=== PATIENT | female | born 1985 | race African-American/Black ===

== ENCOUNTER 2016-10-12 21:32 | Emergency (ER) | payer MEDICAID ==
[~2016-10-12] VITALS: Ht 170.2 cm; Wt 149.7 kg
[~2016-10-12 21:32] MED LIST: ALBUAER3 IN; CLOM50TA PO; METF-489 PO
[2016-10-13 01:02] VITALS: BP 146/90
[2016-10-13 01:10] LABS: Urine Bilirubin Negative (Negative); Urine Blood Negative /uL (Negative); Urine Color Yellow (Yellow); Urine Glucose Normal (Normal); Urine Ketone Negative (Negative); Urine Mucus FEW (None Seen); Urine RBC 4 /hpf (0 - 4); Urine Squamous Epithelial Cell FEW /hpf (<5); Urine Urobilinogen Normal (Negative); Urine pH 5.5 (5.0-8.0)
[2016-10-13 01:11] LABS: Urine Nitrite POSITIVE (Negative)
[2016-10-13] MEDS ORDERED: IBUPROFEN 600 MG TAB PO ONE (01:30)
[2016-10-13] MEDS ORDERED: LEVOFLOXACIN 250 MG TAB PO ONE (01:30)
== END 2016-10-13 02:11 | disposition home or self-care (01) ==
LOC: ER 21:32
DX: N39.0 Urinary tract infection, site not specified (principal); M79.1 Myalgia; J45.909 Unspecified asthma, uncomplicated; Z88.0 Allergy status to penicillin; E07.9 Disorder of thyroid, unspecified; Z88.1 Allergy status to other antibiotic agents; Z88.6 Allergy status to analgesic agent; Z88.8 Allergy status to other drugs, medicaments and biological substances; Z91.040 Latex allergy status
CPT/HCPCS: 81001; 81025

== ENCOUNTER 2018-05-26 01:23 | Emergency (ER) | payer MEDICAID ==
[~2018-05-26] VITALS: Ht 165.1 cm; Wt 117.9 kg
[2018-05-26 02:26] LABS: Basophils # (auto) 0.1 uL; Eosinophils # (auto) 0.2 uL; Eosinophils % (auto) 2.1 % (0.0-7.0); Hematocrit 37.7 % (36.0-46.0); Hemoglobin 12.5 g/dL (12.2-16.2); Lymphocytes # (auto) 3.4 uL; Lymphocytes % (auto) 40.4 % (10.0-50.0); Mean Corpuscular Hgb Conc. 33.2 g/dL (32.0-36.0); Mean Corpuscular Volume 87.3 fL (80.0-100.0); Monocytes # (auto) 0.4 uL; Monocytes % (auto) 4.6 % (0.0-12.0); Neutrophils # (auto) 4.3 uL; Neutrophils % (auto) 51.9 % (37.0-80.0); Nucleated Red Blood Cells % 0.2 %; Platelet Count (auto) 374 10^3/uL (140-450); Red Blood Cells 4.32 10^6/uL (4.0-5.20); Red Cell Distribution Width 13.9 % (11.8-14.3); White Blood Cell 8.3 10^3/uL (4.4-10.8)
[2018-05-26 02:42] LABS: Albumin 3.3 g/dL (3.4-5.0); BUN/Creatinine Ratio 20.6; Calcium 8.8 mg/dL (8.5-10.1); Potassium 3.8 mmol/L (3.5-5.1)
[2018-05-26 02:43] LABS: Bilirubin, Total 0.2 mg/dL (0.2-1.0)
[2018-05-26 04:45] LABS: Urine Bacteria FEW /hpf (None Seen); Urine Blood Negative /uL (Negative); Urine Mucus FEW (None Seen); Urine Specific Gravity 1.018 (1.001-1.035); Urine WBC 473 /hpf (0 - 5); Urine WBC Clumps PRESENT /hpf (None Seen)
[2018-05-26] MEDS ORDERED: LEVOFLOXACIN 750MG 150 ML IV ONE (05:30)
[2018-05-26 05:58] VITALS: BP 118/73
== END 2018-05-26 06:41 | disposition home or self-care (01) ==
LOC: ER 01:23
DX: N39.0 Urinary tract infection, site not specified (principal); J45.909 Unspecified asthma, uncomplicated; E07.9 Disorder of thyroid, unspecified; Z88.0 Allergy status to penicillin; Z88.1 Allergy status to other antibiotic agents; Z88.6 Allergy status to analgesic agent; Z91.040 Latex allergy status; Z90.49 Acquired absence of other specified parts of digestive tract
CPT/HCPCS: 36415; 74176; 80053; 81001; 85025; 96365; 99284; J1956

== ENCOUNTER 2018-07-04 11:21 | Emergency (ER) | payer MEDICAID ==
[~2018-07-04] VITALS: Ht 170.2 cm; Wt 120.2 kg
[2018-07-04 12:06] LABS: Basophils # (auto) 0.1 uL; Basophils % (auto) 0.7 % (0.0-2.0); Eosinophils # (auto) 0.1 uL; Eosinophils % (auto) 1.6 % (0.0-7.0); Hematocrit 39.3 % (36.0-46.0); Lymphocytes # (auto) 2.3 uL; Mean Corpuscular Hemoglobin 29.2 pg (28.0-32.0); Mean Corpuscular Volume 88.5 fL (80.0-100.0); Monocytes # (auto) 0.4 uL; Monocytes % (auto) 5.7 % (0.0-12.0); Neutrophils # (auto) 4.2 uL; Nucleated Red Blood Cells % 0.1 %; Platelet Count (auto) 357 10^3/uL (140-450); Red Blood Cells 4.44 10^6/uL (4.0-5.20); Red Cell Distribution Width 14.1 % (11.8-14.3); White Blood Cell 7.1 10^3/uL (4.4-10.8)
[2018-07-04 12:25] LABS: Albumin 3.3 g/dL (3.4-5.0); BUN/Creatinine Ratio 24.6; Calcium 8.4 mg/dL (8.5-10.1); Potassium 3.6 mmol/L (3.5-5.1)
[2018-07-04 12:29] LABS: Bilirubin, Total 0.3 mg/dL (0.2-1.0); Total Protein 7.9 g/dL (6.4-8.2)
[2018-07-04 14:26] VITALS: BP 130/84
== END 2018-07-04 14:58 | disposition home or self-care (01) ==
LOC: ER 11:21
DX: O34.11 Maternal care for benign tumor of corpus uteri, first trimester (principal); Z3A.01 Less than 8 weeks gestation of pregnancy
CPT/HCPCS: 36415; 76801; 76817; 80053; 81002; 84702; 85025

== ENCOUNTER 2019-08-07 01:49 | Emergency (ER) | payer MEDICAID ==
[~2019-08-07] VITALS: Ht 170.2 cm; Wt 115.7 kg
[2019-08-07 02:45] LABS: Basophils # (auto) 0.1 uL; Basophils % (auto) 0.9 % (0.0-2.0); Eosinophils # (auto) 0.2 uL; Eosinophils % (auto) 2.5 % (0.0-7.0); Hematocrit 41.2 % (36.0-46.0); Hemoglobin 13.5 g/dL (12.2-16.2); Lymphocytes # (auto) 3.8 uL; Lymphocytes % (auto) 41.2 % (10.0-50.0); Mean Corpuscular Hemoglobin 29.7 pg (28.0-32.0); Mean Corpuscular Hgb Conc. 32.7 g/dL (32.0-36.0); Mean Corpuscular Volume 90.6 fL (80.0-100.0); Monocytes # (auto) 0.4 uL; Monocytes % (auto) 4.4 % (0.0-12.0); Neutrophils # (auto) 4.7 uL; Nucleated Red Blood Cells % 0.1 %; Platelet Count (auto) 389 10^3/uL (140-450); Red Blood Cells 4.54 10^6/uL (4.0-5.20); Red Cell Distribution Width 13.7 % (11.8-14.3); White Blood Cell 9.1 10^3/uL (4.4-10.8)
[2019-08-07 03:03] LABS: Alanine Aminotransferase 13 U/L (13-56); Albumin 3.2 g/dL (3.4-5.0); Anion Gap 12 (5-15); Aspartate Aminotransferase 9 U/L (15-37); BUN/Creatinine Ratio 18.7; Blood Urea Nitrogen 14 mg/dL (7-18); Calcium 8.6 mg/dL (8.5-10.1); Carbon Dioxide 18 mmol/L (21-32); Chloride 108 mmol/L (98-107); GFR African American 112 mL/min; GFR Non-African American 93 mL/min; Glucose 93 mg/dL (74-106); Potassium 3.9 mmol/L (3.5-5.1); Sodium 138 mmol/L (136-145)
[2019-08-07 03:08] LABS: Alkaline Phosphatase 87 U/L (45-117); Bilirubin, Total 0.2 mg/dL (0.2-1.0); Total Protein 8.1 g/dL (6.4-8.2)
[2019-08-07] MEDS ORDERED: THIAMINE INJ 100 MG in SODIUM CHLORIDE 0.9% 1,000 ML IV ONE (05:30)
[2019-08-07] MEDS ORDERED: THIAMINE 100mg/ml INJ (200mg/2ml VIAL) ONE (05:52)
[2019-08-07] MEDS ORDERED: ONDANSETRON HCL 4 MG/2 ML VIAL IV ONE (06:45)
[2019-08-07] MEDS ORDERED: HYDROmorphone HCL 2 MG/ML VL IV ONE ×2 (06:45→09:30)
[2019-08-07 06:46] LABS: Urine Bacteria MOD /hpf (None Seen); Urine Blood Negative /uL (Negative); Urine Mucus FEW (None Seen); Urine Specific Gravity 1.015 (1.001-1.035); Urine WBC 55 /hpf (0 - 5)
[2019-08-07] MEDS ORDERED: cefTRIAXone 1GM/50ML D5W 50 ML IV ONE (07:45)
[2019-08-07 09:20] VITALS: BP 111/66
== END 2019-08-07 10:17 | disposition home or self-care (01) ==
LOC: ER 01:49
DX: N39.0 Urinary tract infection, site not specified (principal); N20.0 Calculus of kidney; Q05.9 Spina bifida, unspecified; N31.9 Neuromuscular dysfunction of bladder, unspecified; G82.20 Paraplegia, unspecified; E44.1 Mild protein-calorie malnutrition; J45.909 Unspecified asthma, uncomplicated; E11.9 Type 2 diabetes mellitus without complications; E07.9 Disorder of thyroid, unspecified; Z88.5 Allergy status to narcotic agent; Z91.040 Latex allergy status; Z88.0 Allergy status to penicillin; Z88.1 Allergy status to other antibiotic agents; Z88.8 Allergy status to other drugs, medicaments and biological substances
CPT/HCPCS: 36415; 80053; 81001; 83605; 84484; 85025; 87086; 87088; 87186; 96365; 96367; 96375; 96376; 99284; J0696; J1170; J2405; J3411; J7030

== ENCOUNTER 2019-08-11 02:31 | Inpatient (IN) | payer MEDICAID ==
[~2019-08-11] VITALS: Ht 170.2 cm; Wt 115.8 kg
[2019-08-11] MEDS ORDERED: ACETAMINOPHEN 500 MG TAB PO ONE (03:15)
[2019-08-11 03:34] LABS: Basophils # (auto) 0 uL; Basophils % (auto) 0.9 % (0.0-2.0); Eosinophils # (auto) 0 uL; Eosinophils % (auto) 0.8 % (0.0-7.0); Hematocrit 40.1 % (36.0-46.0); Hemoglobin 13.3 g/dL (12.2-16.2); Lymphocytes # (auto) 0.8 uL; Mean Corpuscular Hemoglobin 29.5 pg (28.0-32.0); Mean Corpuscular Hgb Conc. 33.2 g/dL (32.0-36.0); Mean Corpuscular Volume 88.9 fL (80.0-100.0); Monocytes # (auto) 0.5 uL; Neutrophils # (auto) 4.1 uL; Neutrophils % (auto) 75.3 % (37.0-80.0); Nucleated Red Blood Cells % 0.1 %; Platelet Count (auto) 324 10^3/uL (140-450); Red Blood Cells 4.51 10^6/uL (4.0-5.20); Red Cell Distribution Width 13.4 % (11.8-14.3); White Blood Cell 5.4 10^3/uL (4.4-10.8)
[2019-08-11 03:50] LABS: Albumin 3.2 g/dL (3.4-5.0); BUN/Creatinine Ratio 14.5; Calcium 8.4 mg/dL (8.5-10.1); Potassium 3.7 mmol/L (3.5-5.1)
[2019-08-11 03:53] LABS: Bilirubin, Total 0.2 mg/dL (0.2-1.0); Total Protein 8.1 g/dL (6.4-8.2)
[2019-08-11 06:50] LABS: Urine Bacteria NONE SEEN /hpf (None Seen); Urine Blood Negative /uL (Negative); Urine Specific Gravity 1.014 (1.001-1.035); Urine WBC 50 /hpf (0 - 5)
[2019-08-11] MEDS ORDERED: ACETAMINOPHEN 325 MG TAB PO ONE (08:15)
[2019-08-11] MEDS ORDERED: DEXTROSE (50%) 50ML SYRG IV PRN (10:45)
[2019-08-11] MEDS ORDERED: ACETAMINOPHEN 325 MG TAB PO PRN (11:00)
[2019-08-11] MEDS ORDERED: ACETAMINOPHEN 500 MG TAB PO PRN (11:00)
[2019-08-11] MEDS: InsuLIN REG 1unit/0.01ml Soln (100units/ml) SC SCH ×3 (11:30→21:32)
[2019-08-11] MEDS: SODIUM CHLORIDE 0.9% 1,000 ML IV SCH ×2 (11:33→20:42)
[2019-08-11] MEDS: ACCU-CHEK COMFORT CURVE STRIP VI SCH ×3 (11:41→21:32)
[2019-08-11] MEDS ORDERED: cefTRIAXone 1GM/50ML D5W 50 ML IV ONE (11:45)
[2019-08-11 13:40] VITALS: BP 176/92
[2019-08-11] MEDS ORDERED: ACET-1156 PO (16:05)
[2019-08-11] MEDS ORDERED: MULTCAP45 PO (16:05)
[2019-08-11 17:00] VITALS: BP 128/82
[2019-08-11] MEDS: ACETAMINOPHEN 325 MG TAB PO PRN ×2 (17:06→22:40)
[2019-08-11] MEDS: MORPHINE SULF INJ 2 MG/ML SYRINGE 1ML IV PRN (20:15)
[2019-08-11] MEDS: FAMOTIDINE 20 MG TAB PO SCH (21:31)
[2019-08-11 22:00] VITALS: BP 113/71
[2019-08-11] MEDS: PIPERACILLIN-TAZOB 3.375GM 100 ML IV SCH (23:26)
[2019-08-12 05:00] VITALS: BP 121/96
[2019-08-12] MEDS: MORPHINE SULF INJ 2 MG/ML SYRINGE 1ML IV PRN ×4 (05:03→19:51)
[2019-08-12] MEDS: PIPERACILLIN-TAZOB 3.375GM 100 ML IV SCH (05:32)
[2019-08-12] MEDS: ACETAMINOPHEN 325 MG TAB PO PRN (05:33)
[2019-08-12] MEDS: SODIUM CHLORIDE 0.9% 1,000 ML IV SCH ×2 (06:12→11:20)
[2019-08-12] MEDS: ACCU-CHEK COMFORT CURVE STRIP VI SCH ×4 (06:13→21:55)
[2019-08-12] MEDS: InsuLIN REG 1unit/0.01ml Soln (100units/ml) SC SCH ×4 (06:13→21:55)
[2019-08-12 09:00] VITALS: BP 102/54
[2019-08-12] MEDS: cefTRIAXone 1GM/50ML D5W 50 ML IV SCH (09:31)
[2019-08-12] MEDS: FAMOTIDINE 20 MG TAB PO SCH ×2 (09:31→21:55)
[2019-08-12 09:36] VITALS: BP 112/73
[2019-08-12 13:00] VITALS: BP 118/62
[2019-08-12] MEDS ORDERED: IBUPROFEN 600 MG TAB PO PRN (14:45)
[2019-08-12] MEDS ORDERED: MORPHINE SULF INJ 2 MG/ML SYRINGE 1ML IV PRN ×2 (14:45→15:00)
[2019-08-12] MEDS ORDERED: ACETAMINOPHEN 325 MG TAB PO PRN (15:00)
[2019-08-12 16:54] VITALS: BP 128/74
[2019-08-12 22:00] VITALS: BP 124/75
[2019-08-13] MEDS: MORPHINE SULF INJ 2 MG/ML SYRINGE 1ML IV PRN ×6 (01:00→21:43)
[2019-08-13] MEDS: SODIUM CHLORIDE 0.9% 1,000 ML IV SCH ×3 (02:38→21:42)
[2019-08-13 05:00] VITALS: BP 101/72
[2019-08-13] MEDS: InsuLIN REG 1unit/0.01ml Soln (100units/ml) SC SCH ×4 (05:46→21:46)
[2019-08-13] MEDS: ACCU-CHEK COMFORT CURVE STRIP VI SCH ×4 (05:46→21:43)
[2019-08-13 05:49] LABS: Hematocrit 36.6 % (36.0-46.0); Hemoglobin 12.6 g/dL (12.2-16.2); Mean Corpuscular Hemoglobin 30.6 pg (28.0-32.0); Mean Corpuscular Hgb Conc. 34.5 g/dL (32.0-36.0); Mean Corpuscular Volume 88.9 fL (80.0-100.0); Platelet Count (auto) 256 10^3/uL (140-450); Red Blood Cells 4.12 10^6/uL (4.0-5.20); Red Cell Distribution Width 13.4 % (11.8-14.3); White Blood Cell 3.5 10^3/uL (4.4-10.8)
[2019-08-13 06:10] LABS: Potassium 3.3 mmol/L (3.5-5.1)
[2019-08-13 06:13] LABS: BUN/Creatinine Ratio 12.3
[2019-08-13 06:37] LABS: Blast Cells 0; Metamyelocytes % 0; Myelocytes % 0; Promyelocytes % 0; Reactive Lymphocytes 0
[2019-08-13 06:57] LABS: Band Neutrophils % (manual) 1; Basophils % (manual) 1 (0.0-2.0); Eosinophils % (manual) 9 (0-7); Lymphocytes % (manual) 58 (10.0-50.0); Monocytes % (manual) 7 (0-12)
[2019-08-13 09:00] VITALS: BP 104/68
[2019-08-13] MEDS: FAMOTIDINE 20 MG TAB PO SCH ×2 (09:25→21:41)
[2019-08-13] MEDS: cefTRIAXone 1GM/50ML D5W 50 ML IV SCH (09:25)
[2019-08-13] MEDS ORDERED: POTASSIUM EFFERVESENT TAB 25 MEQ PO ONE (11:45)
[2019-08-13 12:35] VITALS: BP 113/71
[2019-08-13 17:00] VITALS: BP 106/65
[2019-08-13 17:15] LABS: Potassium 3.9 mmol/L (3.5-5.1)
[2019-08-13 20:00] VITALS: BP 133/93
[2019-08-14] MEDS: MORPHINE SULF INJ 2 MG/ML SYRINGE 1ML IV PRN ×3 (01:56→11:17)
[2019-08-14 04:48] VITALS: BP 112/72
[2019-08-14] MEDS: ALBUTEROL SULF 2.5 MG/0.5ML(0.5%) NEB SOLN NEB SCH ×2 (06:00→11:27)
[2019-08-14] MEDS: IPRATROPIUM BROM 0.5 MG/2.5ML INH SOL NEB SCH ×2 (06:00→11:27)
[2019-08-14] MEDS: InsuLIN REG 1unit/0.01ml Soln (100units/ml) SC SCH ×2 (06:28→11:30)
[2019-08-14] MEDS: ACCU-CHEK COMFORT CURVE STRIP VI SCH ×2 (06:29→11:13)
[2019-08-14 06:41] LABS: Basophils # (auto) 0 uL; Basophils % (auto) 0.5 % (0.0-2.0); Eosinophils # (auto) 0.2 uL; Eosinophils % (auto) 3.9 % (0.0-7.0); Hematocrit 34.6 % (36.0-46.0); Hemoglobin 11.8 g/dL (12.2-16.2); Lymphocytes % (auto) 45.8 % (10.0-50.0); Mean Corpuscular Hemoglobin 30.1 pg (28.0-32.0); Mean Corpuscular Volume 88.7 fL (80.0-100.0); Monocytes # (auto) 0.3 uL; Monocytes % (auto) 6.8 % (0.0-12.0); Neutrophils # (auto) 1.9 uL; Nucleated Red Blood Cells % 0.1 %; Platelet Count (auto) 271 10^3/uL (140-450); Red Cell Distribution Width 13.3 % (11.8-14.3); White Blood Cell 4.4 10^3/uL (4.4-10.8)
[2019-08-14 06:58] LABS: BUN/Creatinine Ratio 14.8; Calcium 8.4 mg/dL (8.5-10.1); Potassium 3.9 mmol/L (3.5-5.1)
[2019-08-14] MEDS: SODIUM CHLORIDE 0.9% 1,000 ML IV SCH (08:38)
[2019-08-14 09:00] VITALS: BP 129/73
[2019-08-14] MEDS: cefTRIAXone 1GM/50ML D5W 50 ML IV SCH (11:12)
[2019-08-14] MEDS: FAMOTIDINE 20 MG TAB PO SCH (11:13)
[2019-08-14 13:00] VITALS: BP 108/74
[2019-08-14 14:04] VITALS: BP 129/73
[2019-08-14] MEDS ORDERED: LEVO500T21 PO (14:38)
[2019-08-14 15:45] VITALS: BP 122/73
== END 2019-08-14 16:25 | disposition home or self-care (01) | DRG 720 ==
LOC: ER 02:33 → OVERFLOW 02:34 → EAST 13:38
PROVIDERS: ADMIT Internal Medicine; ATTEND Internal Medicine
DX: A41.9 Sepsis, unspecified organism (principal); E66.01 Morbid (severe) obesity due to excess calories; F11.20 Opioid dependence, uncomplicated; E87.1 Hypo-osmolality and hyponatremia; N31.9 Neuromuscular dysfunction of bladder, unspecified; D64.9 Anemia, unspecified; E87.6 Hypokalemia; J45.909 Unspecified asthma, uncomplicated; K59.00 Constipation, unspecified; N12 Tubulo-interstitial nephritis, not specified as acute or chronic; F41.9 Anxiety disorder, unspecified; E11.9 Type 2 diabetes mellitus without complications; M54.5 Low back pain; G89.29 Other chronic pain; Z80.9 Family history of malignant neoplasm, unspecified; Q05.9 Spina bifida, unspecified; Z82.49 Family history of ischemic heart disease and other diseases of the circulatory system; Z82.5 Family history of asthma and other chronic lower respiratory diseases; Z83.3 Family history of diabetes mellitus; Z85.038 Personal history of other malignant neoplasm of large intestine; Z87.440 Personal history of urinary (tract) infections; Z98.84 Bariatric surgery status; Z90.49 Acquired absence of other specified parts of digestive tract; Z88.1 Allergy status to other antibiotic agents; Z88.5 Allergy status to narcotic agent; Z88.0 Allergy status to penicillin; Z91.040 Latex allergy status; Z88.8 Allergy status to other drugs, medicaments and biological substances; Z68.41 Body mass index [BMI] 40.0-44.9, adult
CPT/HCPCS: 36415; 74176; 76775; 80048; 80053; 81001; 82962; 83036; 83605; 84443; 85007; 85025; 85027; 87040; 87086; 87804; 94640; 96365; G0378; J0696; J2543

== ENCOUNTER 2019-11-12 19:29 | Emergency (ER) | payer MEDICAID ==
[~2019-11-12] VITALS: Ht 170.2 cm; Wt 115.7 kg
[~2019-11-12 19:29] MED LIST changes: +ACET-1156 PO; -ALBUAER3 IN; -CLOM50TA PO; +LEVO500T21 PO; -METF-489 PO; +MULTCAP45 PO
[2019-11-12] MEDS ORDERED: SODIUM CHLORIDE 0.9% 1,000 ML IV ONE (21:45)
[2019-11-12] MEDS ORDERED: ONDANSETRON HCL 4 MG/2 ML VIAL IV ONE (22:15)
[2019-11-12] MEDS ORDERED: MORPHINE SULFATE 4 MG/ML SYR/VIAL IV ONE (22:15)
[2019-11-12] MEDS ORDERED: cefTRIAXone 1GM/50ML D5W 50 ML IV ONE (22:30)
[2019-11-12 22:35] LABS: Basophils # (auto) 0.1 10 ^3/uL (0-0.2); Basophils % (auto) 0.9 % (0.0-2.0); Eosinophils # (auto) 0.2 10 ^3/uL (0-0.8); Eosinophils % (auto) 2.1 % (0.0-7.0); Hemoglobin 13.4 g/dL (12.2-16.2); Lymphocytes # (auto) 2.5 10 ^3/uL (0.4-5.4); Lymphocytes % (auto) 28.7 % (10.0-50.0); Mean Corpuscular Hemoglobin 29.7 pg (28.0-32.0); Mean Corpuscular Hgb Conc. 33.4 g/dL (32.0-36.0); Mean Corpuscular Volume 88.8 fL (80.0-100.0); Monocytes # (auto) 0.4 10 ^3/uL (0-1.3); Monocytes % (auto) 4.8 % (0.0-12.0); Neutrophils # (auto) 5.5 10 ^3/uL (1.6-8.6); Neutrophils % (auto) 63.5 % (37.0-80.0); Nucleated Red Blood Cells % 0.1 %; Platelet Count (auto) 404 10^3/uL (140-450); Red Cell Distribution Width 13.7 % (11.8-14.3); White Blood Cell 8.6 10^3/uL (4.4-10.8)
[2019-11-12 22:42] LABS: Urine Bacteria FEW /hpf (None Seen); Urine Blood 1+ /uL (Negative); Urine Mucus FEW (None Seen); Urine Specific Gravity 1.015 (1.001-1.035); Urine WBC 56 /hpf (0 - 5)
[2019-11-12 22:52] LABS: Albumin 3.1 g/dL (3.4-5.0); Calcium 8.6 mg/dL (8.5-10.1); Potassium 3.9 mmol/L (3.5-5.1)
[2019-11-12 22:54] LABS: BUN/Creatinine Ratio 12.2
[2019-11-12 22:56] LABS: Bilirubin, Total 0.2 mg/dL (0.2-1.0); Total Protein 8.1 g/dL (6.4-8.2)
[2019-11-13] MEDS ORDERED: HYDROmorphone HCL 2 MG/ML VL IV ONE (00:30)
[2019-11-13 01:00] VITALS: BP 127/67
== END 2019-11-13 01:13 | disposition home or self-care (01) ==
LOC: ER 19:29
DX: M25.511 Pain in right shoulder (principal); N39.0 Urinary tract infection, site not specified; J45.909 Unspecified asthma, uncomplicated; E11.9 Type 2 diabetes mellitus without complications; Z88.0 Allergy status to penicillin; Z88.6 Allergy status to analgesic agent; Z88.8 Allergy status to other drugs, medicaments and biological substances; Z90.49 Acquired absence of other specified parts of digestive tract; W18.2XXA Fall in (into) shower or empty bathtub, initial encounter; Y93.89 Activity, other specified; Y92.89 Other specified places as the place of occurrence of the external cause; Y99.8 Other external cause status
CPT/HCPCS: 36415; 73060; 80053; 81001; 85025; 87086; 96365; 96375; 99285; J0696; J2270; J2405; J7030

== ENCOUNTER 2019-12-02 22:26 | Inpatient (IN) | payer MEDICAID ==
[~2019-12-02] VITALS: Ht 170.2 cm; Wt 119.6 kg
[2019-12-02] MEDS ORDERED: cloNIDine HCL 0.1 MG TAB PO ONE (23:30)
[2019-12-03 01:43] LABS: Basophils # (auto) 0.1 10 ^3/uL (0-0.2); Basophils % (auto) 0.9 % (0.0-2.0); Eosinophils # (auto) 0.2 10 ^3/uL (0-0.8); Eosinophils % (auto) 2.5 % (0.0-7.0); Hematocrit 39.7 % (36.0-46.0); Hemoglobin 13.3 g/dL (12.2-16.2); Lymphocytes # (auto) 2.9 10 ^3/uL (0.4-5.4); Lymphocytes % (auto) 41.3 % (10.0-50.0); Mean Corpuscular Hemoglobin 29.7 pg (28.0-32.0); Mean Corpuscular Hgb Conc. 33.5 g/dL (32.0-36.0); Mean Corpuscular Volume 88.6 fL (80.0-100.0); Monocytes # (auto) 0.4 10 ^3/uL (0-1.3); Monocytes % (auto) 5.4 % (0.0-12.0); Neutrophils # (auto) 3.5 10 ^3/uL (1.6-8.6); Neutrophils % (auto) 49.9 % (37.0-80.0); Nucleated Red Blood Cells % 0.2 %; Platelet Count (auto) 356 10^3/uL (140-450); Red Blood Cells 4.49 10^6/uL (4.0-5.20); Red Cell Distribution Width 13.7 % (11.8-14.3); White Blood Cell 7.1 10^3/uL (4.4-10.8)
[2019-12-03 02:01] LABS: Albumin 3.5 g/dL (3.4-5.0); BUN/Creatinine Ratio 19.7; Calcium 8.5 mg/dL (8.5-10.1); Potassium 3.7 mmol/L (3.5-5.1)
[2019-12-03 02:04] LABS: Bilirubin, Total 0.3 mg/dL (0.2-1.0); Total Protein 8.1 g/dL (6.4-8.2)
[2019-12-03] MEDS ORDERED: SODIUM CHLORIDE 0.9% 1,000 ML IV ONE (02:30)
[2019-12-03] MEDS ORDERED: SULFAMETH-TRIMETH 80/16MG-ML 15 ML in D5W 5% 500 ML IV ONE (02:30)
[2019-12-03] MEDS ORDERED: methylPREDNISolone SOD SUCC 125 MG/2 ML VL IM ONE (02:30)
[2019-12-03 02:32] LABS: Urine Amorphous Crystal MOD /hpf (None Seen); Urine Bacteria MOD /hpf (None Seen); Urine Blood 1+ /uL (Negative); Urine Specific Gravity 1.016 (1.001-1.035); Urine WBC 81 /hpf (0 - 5)
[2019-12-03] MEDS ORDERED: methylPREDNISolone SOD SUCC 125 MG/2 ML VL IV ONE (02:45)
[2019-12-03] MEDS ORDERED: levoFLOXacin 750MG 150 ML IV ONE (04:00)
[2019-12-03] MEDS ORDERED: MORPHINE SULF INJ 2 MG/ML SYRINGE 1ML IV ONE (05:30)
[2019-12-03] MEDS ORDERED: ONDANSETRON HCL 4 MG/2 ML VIAL IV PRN (06:00)
[2019-12-03] MEDS ORDERED: ACETAMINOPHEN 325 MG TAB PO PRN ×3 (06:00→14:30)
[2019-12-03] MEDS ORDERED: TEMAZEPAM 15 MG CAP PO PRN (06:00)
[2019-12-03] MEDS ORDERED: diphenhdrAMINE HCL 50 MG/1 ML VL IV ONE (06:15)
[2019-12-03] MEDS: FAMOTIDINE 20 MG TAB PO SCH ×2 (06:46→22:47)
[2019-12-03] MEDS ORDERED: MORPHINE SULF INJ 2 MG/ML SYRINGE 1ML IV PRN (09:45)
[2019-12-03] MEDS ORDERED: PATIENTS OWN MEDICATION (ertapenem 1 GM) IV SCH (10:00)
[2019-12-03] MEDS: ERTAPENEM SOD INJ 1 GM in SODIUM CHL 0.9% 50 ML IV SCH (13:34)
[2019-12-03] MEDS ORDERED: cloNIDine HCL 0.1 MG TAB PO PRN (14:15)
[2019-12-03] MEDS ORDERED: DEXTROSE (50%) 50ML SYRG IV PRN (14:30)
[2019-12-03] MEDS: ACCU-CHEK COMFORT CURVE STRIP VI SCH ×2 (17:00→22:48)
[2019-12-03] MEDS: InsuLIN REG 1unit/0.01ml Soln (100units/ml) SC SCH ×2 (17:00→22:00)
[2019-12-03] MEDS: MORPHINE SULF INJ 2 MG/ML SYRINGE 1ML IV PRN ×2 (17:12→23:07)
[2019-12-03 20:25] VITALS: BP 102/72
--- NOTE | 2019-12-03 20:25 | NUR ---
MS admit from ER MAURO AHUMADA admitted to tele/MS after SBAR received. PATIENT ARRIVED WITH ANCILLARY SERVICES MANAGER THERAPY VIA WHEELCHAIR. NO S/SX OF DISTRESS OR SOB. PATIENT IS ON RA. VITAL SIGNES WITHIN NORMAL LIMITS. Patient oriented to Lo Syed, primary RN, unit, room, bed, and unit policies regarding patient care. Patient weighed by bed scale and encouraged to call if they need something. All questions and concerns addressed, patient verbalized understanding. PATIENT IN BED, BED IS LOCKED AT LOWEST POSITION, BED RAILS UP X2, BEDSIDE TABLE WITHIN REACH, CALL LIGHT WITHIN REACH. DISCUSSED POC WITH PATIENT.
--- NOTE | 2019-12-03 20:35 | NUR ---
PATIENT REFUSED TO PROVIDE NOK OR FAMILY CONTACT INFO.
[2019-12-03] MEDS ORDERED: ALBU2TAB4 INH (23:45)
--- NOTE | 2019-12-04 00:01 | NUR ---
PAGED HOSPITALIST PATIENT REQUESTING STRONGER PAIN MEDICATION. PATIENT HAS ORDERED MORPHINE 1MG FOR PAIN 4-6. PATIENT IS OBESE AND PARAPLEGIC; REQUESTING ANTICOAGULANT FOR PATIENT.
[2019-12-04] MEDS: MORPHINE SULF INJ 2 MG/ML SYRINGE 1ML IV PRN ×5 (03:43→21:53)
[2019-12-04 05:00] VITALS: BP 100/60
[2019-12-04 05:45] LABS: Basophils # (auto) 0 10 ^3/uL (0-0.2); Basophils % (auto) 0.5 % (0.0-2.0); Eosinophils # (auto) 0.1 10 ^3/uL (0-0.8); Eosinophils % (auto) 0.8 % (0.0-7.0); Hematocrit 36.8 % (36.0-46.0); Hemoglobin 12.3 g/dL (12.2-16.2); Lymphocytes # (auto) 3.2 10 ^3/uL (0.4-5.4); Mean Corpuscular Hemoglobin 29.8 pg (28.0-32.0); Mean Corpuscular Hgb Conc. 33.3 g/dL (32.0-36.0); Mean Corpuscular Volume 89.6 fL (80.0-100.0); Monocytes # (auto) 0.4 10 ^3/uL (0-1.3); Neutrophils # (auto) 3.7 10 ^3/uL (1.6-8.6); Neutrophils % (auto) 50.7 % (37.0-80.0); Nucleated Red Blood Cells % 0.1 %; Platelet Count (auto) 339 10^3/uL (140-450); Red Blood Cells 4.11 10^6/uL (4.0-5.20); Red Cell Distribution Width 13.2 % (11.8-14.3); White Blood Cell 7.4 10^3/uL (4.4-10.8)
[2019-12-04] MEDS: InsuLIN REG 1unit/0.01ml Soln (100units/ml) SC SCH ×2 (05:57→11:15)
[2019-12-04] MEDS: ACCU-CHEK COMFORT CURVE STRIP VI SCH ×2 (05:58→11:16)
[2019-12-04 06:02] LABS: BUN/Creatinine Ratio 16.3; Calcium 8.3 mg/dL (8.5-10.1); Potassium 3.4 mmol/L (3.5-5.1)
[2019-12-04 08:00] VITALS: BP 141/99
--- NOTE | 2019-12-04 08:00 | NUR ---
ASSESSMENT NOTE PT IS ALERT ORIENTED X4, RESTING IN BED COMFORTABLY, DESPITE PT IS PARAPLEGIC PT IS ABLE TO SELF REPOSITION EVERY 2 HOURS AT ALL TIMES, ON PAIN MANAGEMENT AT ALL TIMES NEEDED, CALL LIGHT WITHIN REACH
[2019-12-04 09:00] VITALS: BP 111/73
[2019-12-04] MEDS: ENOXAPARIN SOD 40 MG/0.4 ML SYRINGE SC SCH (09:37)
[2019-12-04] MEDS: FAMOTIDINE 20 MG TAB PO SCH ×2 (09:37→21:53)
[2019-12-04] MEDS: ERTAPENEM SOD INJ 1 GM in SODIUM CHL 0.9% 50 ML IV SCH (09:42)
[2019-12-04] MEDS ORDERED: POTASSIUM EFFERVESENT TAB 25 MEQ PO ONE (10:00)
--- NOTE | 2019-12-04 10:00 | NUR ---
DR MITCHELL AT BED SIDE FOLLOWING UP ON PT WITH NEW ORDERS
[2019-12-04 13:00] VITALS: BP 107/69
--- NOTE | 2019-12-04 16:00 | NUR ---
SHOWER PT ASSISTED BY HER AID TO THE WHEEL CHAIR TO TAKE A SHOWER
--- NOTE | 2019-12-04 16:30 | NUR ---
PT IS BACK TO HER BED, DRY AND CLEAN
[2019-12-04 17:00] VITALS: BP 113/80
--- NOTE | 2019-12-04 18:30 | NUR ---
PT CONTINUE STABLE , CONTINUE MONITORING
--- NOTE | 2019-12-04 19:25 | NUR ---
Opening Shift Note Assumed care of patient, awake and alert x4. No S/S of distress/SOB. Call light is within reach, side rails up x2, bed is in the lowest position. Instructed on POC and to call for assist PRN, will continue to monitor for changes Q1hr and PRN.
--- NOTE | 2019-12-04 20:23 | NUR ---
Paged hospitalist, patient is complaining of feeling like her muscles are having spasms.
--- NOTE | 2019-12-04 20:37 | NUR ---
Hospitalist Wong is rounding, he said he will give her something for the muscle spasm.
--- NOTE | 2019-12-04 21:00 | NUR ---
Patient ambulated with her wheelchair in front of her room in the hallway for a few minutes and back to bed with no S/S of distress.
[2019-12-04] MEDS ORDERED: BACLOFEN 10 MG TAB PO ONE (21:45)
[2019-12-04 22:00] VITALS: BP 134/88
[2019-12-05] MEDS: MORPHINE SULF INJ 2 MG/ML SYRINGE 1ML IV PRN ×4 (03:30→16:32)
[2019-12-05 05:00] VITALS: BP 113/63
[2019-12-05 06:18] LABS: Basophils # (auto) 0 10 ^3/uL (0-0.2); Basophils % (auto) 0.7 % (0.0-2.0); Eosinophils # (auto) 0.2 10 ^3/uL (0-0.8); Eosinophils % (auto) 2.7 % (0.0-7.0); Hematocrit 37.2 % (36.0-46.0); Hemoglobin 12.5 g/dL (12.2-16.2); Lymphocytes # (auto) 2.8 10 ^3/uL (0.4-5.4); Lymphocytes % (auto) 43.4 % (10.0-50.0); Mean Corpuscular Hgb Conc. 33.7 g/dL (32.0-36.0); Mean Corpuscular Volume 89.1 fL (80.0-100.0); Monocytes # (auto) 0.3 10 ^3/uL (0-1.3); Monocytes % (auto) 3.9 % (0.0-12.0); Neutrophils # (auto) 3.2 10 ^3/uL (1.6-8.6); Neutrophils % (auto) 49.3 % (37.0-80.0); Nucleated Red Blood Cells % 0.2 %; Platelet Count (auto) 331 10^3/uL (140-450); Red Blood Cells 4.18 10^6/uL (4.0-5.20); Red Cell Distribution Width 13.6 % (11.8-14.3); White Blood Cell 6.6 10^3/uL (4.4-10.8)
[2019-12-05 06:42] LABS: Potassium 3.7 mmol/L (3.5-5.1)
[2019-12-05 06:47] LABS: BUN/Creatinine Ratio 15.9; Calcium 8.2 mg/dL (8.5-10.1)
[2019-12-05 08:00] VITALS: BP 141/99
[2019-12-05] MEDS: ERTAPENEM SOD INJ 1 GM in SODIUM CHL 0.9% 50 ML IV SCH (08:55)
[2019-12-05] MEDS: FAMOTIDINE 20 MG TAB PO SCH (08:55)
[2019-12-05] MEDS: ENOXAPARIN SOD 40 MG/0.4 ML SYRINGE SC SCH (08:55)
[2019-12-05 09:47] VITALS: BP 106/66
--- NOTE | 2019-12-05 10:46 | NUR ---
DR NAVARRETE AT BED SIDE FOLLOWING UP ON PT, WITH DISCHARGE HOME PLANING
[2019-12-05] MEDS ORDERED: NITR-87 PO (11:05)
[2019-12-05 12:27] VITALS: BP 112/76
[2019-12-05 16:17] VITALS: BP 124/70
--- NOTE | 2019-12-05 16:35 | NUR ---
Benavides catheter dc'd Order to discontinue benavides catheter. Benavides dc'd with clean technique following deflation of balloon. Patient tolerated well with no complaints of pain. Continue care.
--- NOTE | 2019-12-05 16:40 | NUR ---
PATIENT MADE AWARE OF THE DISCHARGE HOME, AND START ON THE NEW PRESCRIPTION
--- NOTE | 2019-12-05 17:00 | NUR ---
SHOWER PT IS TAKING A SHOWER
--- NOTE | 2019-12-05 18:20 | NUR ---
PT REQUESTED A TAXI VOUCHER, OBTAIN FROM THE HALFWAY HOUSE COUNSELOR
[2019-12-05 18:27] VITALS: BP 141/99
--- NOTE | 2019-12-05 18:53 | NUR ---
ALL DISCHARGE INSTRUCTION GIVEN TO PT, VERBALIS UNDERSTANDING, PT ON HER OWN WHEEL CHAIR AT THIS TIME EATING DINNER
--- NOTE | 2019-12-05 19:20 | NUR ---
Discharge instructions given as ordered. Encourage to follow up with PMD as instructed. All questions and concerns addressed. Patient verbalized understanding. Medication reconciliation form completed and copy given to patient. IV removed with catheter intact, pressure dressing applied. Patient taken to vehicle via wheelchair with all personal belongings, accompanied by staff to Taxi cap. No distress noted at time of departure.
== END 2019-12-05 19:20 | disposition home or self-care (01) | DRG 463 ==
LOC: ER 22:28 → OVERFLOW 22:29 → CENTRAL 12-03 20:20
PROVIDERS: ADMIT Nurse Practitioner; ATTEND Internal Medicine
DX: N10 Acute pyelonephritis (principal); E11.21 Type 2 diabetes mellitus with diabetic nephropathy; G82.20 Paraplegia, unspecified; E11.65 Type 2 diabetes mellitus with hyperglycemia; B95.2 Enterococcus as the cause of diseases classified elsewhere; E66.01 Morbid (severe) obesity due to excess calories; Q05.9 Spina bifida, unspecified; N31.9 Neuromuscular dysfunction of bladder, unspecified; E03.9 Hypothyroidism, unspecified; I10 Essential (primary) hypertension; J45.909 Unspecified asthma, uncomplicated; Z80.0 Family history of malignant neoplasm of digestive organs; Z82.5 Family history of asthma and other chronic lower respiratory diseases; Z83.3 Family history of diabetes mellitus; Z88.0 Allergy status to penicillin; Z88.8 Allergy status to other drugs, medicaments and biological substances; Z88.6 Allergy status to analgesic agent; Z88.1 Allergy status to other antibiotic agents; Z91.040 Latex allergy status; Z90.49 Acquired absence of other specified parts of digestive tract; Z68.41 Body mass index [BMI] 40.0-44.9, adult
CPT/HCPCS: 36415; 74176; 80048; 80053; 81001; 81025; 82962; 84443; 85025; 87040; 87086; 87088; 87186; G0378; J1335; J1956; J3490

== ENCOUNTER 2019-12-12 19:32 | Inpatient (IN) | payer MEDICAID ==
[~2019-12-12] VITALS: Ht 167.6 cm; Wt 112.5 kg
[~2019-12-12 19:32] MED LIST changes: +ALBU2TAB4 INH; -LEVO500T21 PO; +NITR100C44 PO
[2019-12-12] MEDS ORDERED: SODIUM CHLORIDE 0.9% 1,000 ML IV ONE (20:15)
[2019-12-12 22:17] LABS: Basophils # (auto) 0 10 ^3/uL (0-0.2); Basophils % (auto) 0.6 % (0.0-2.0); Eosinophils # (auto) 0.1 10 ^3/uL (0-0.8); Eosinophils % (auto) 1.4 % (0.0-7.0); Hematocrit 40.8 % (36.0-46.0); Hemoglobin 13.7 g/dL (12.2-16.2); Lymphocytes # (auto) 2.1 10 ^3/uL (0.4-5.4); Mean Corpuscular Hemoglobin 29.6 pg (28.0-32.0); Mean Corpuscular Hgb Conc. 33.6 g/dL (32.0-36.0); Mean Corpuscular Volume 88.1 fL (80.0-100.0); Monocytes # (auto) 0.4 10 ^3/uL (0-1.3); Monocytes % (auto) 5.8 % (0.0-12.0); Neutrophils # (auto) 4.6 10 ^3/uL (1.6-8.6); Neutrophils % (auto) 63.2 % (37.0-80.0); Nucleated Red Blood Cells % 0.2 %; Platelet Count (auto) 370 10^3/uL (140-450); Red Blood Cells 4.63 10^6/uL (4.0-5.20); Red Cell Distribution Width 13.4 % (11.8-14.3); White Blood Cell 7.2 10^3/uL (4.4-10.8)
[2019-12-12 22:35] LABS: Alanine Aminotransferase 24 U/L (13-56); Albumin 3.4 g/dL (3.4-5.0); Anion Gap 8 (5-15); Aspartate Aminotransferase 13 U/L (15-37); BUN/Creatinine Ratio 26.8; Blood Urea Nitrogen 19 mg/dL (7-18); Calcium 8.6 mg/dL (8.5-10.1); Carbon Dioxide 21 mmol/L (21-32); Chloride 108 mmol/L (98-107); GFR African American 120 mL/min; GFR Non-African American 99 mL/min; Glucose 84 mg/dL (74-106); Potassium 3.6 mmol/L (3.5-5.1); Sodium 137 mmol/L (136-145)
[2019-12-12 22:40] LABS: Alkaline Phosphatase 85 U/L (45-117); Bilirubin, Total 0.2 mg/dL (0.2-1.0); Total Protein 8.2 g/dL (6.4-8.2)
[2019-12-12] MEDS ORDERED: MORPHINE SULFATE 4 MG/ML SYR/VIAL IV ONE (23:00)
[2019-12-12] MEDS ORDERED: ONDANSETRON HCL 4 MG/2 ML VIAL IV ONE (23:00)
[2019-12-13] MEDS ORDERED: MORPHINE SULFATE 4 MG/ML SYR/VIAL IV ONE (01:30)
[2019-12-13 01:48] LABS: Amphetamine Screen, Urine NEGATIVE (NEGATIVE); Barbiturate Scree,Urine NEGATIVE (NEGATIVE); Benzodiazephine Screen, Urine NEGATIVE (NEGATIVE); Cannabinoid Screen, Urine NEGATIVE (NEGATIVE); Cocaine Screen, Urine NEGATIVE (NEGATIVE); Opiate Scree,Urine NEGATIVE (NEGATIVE); Phencyclidine Screen, Urine NEGATIVE (NEGATIVE)
[2019-12-13 01:54] LABS: Urine Bacteria FEW /hpf (None Seen); Urine Mucus FEW (None Seen); Urine Specific Gravity 1.015 (1.001-1.035); Urine WBC 193 /hpf (0 - 5); Urine WBC Clumps PRESENT /hpf (None Seen)
[2019-12-13 01:55] LABS: Alcohol, Urine < 3.0 mg/dL (0-10)
[2019-12-13 01:58] LABS: Urine Blood Negative /uL (Negative)
[2019-12-13] MEDS ORDERED: cefTRIAXone 1GM/50ML D5W 50 ML IV ONE (02:30)
[2019-12-13] MEDS ORDERED: ONDANSETRON HCL 4 MG/2 ML VIAL IV PRN (02:45)
[2019-12-13] MEDS ORDERED: ACETAMINOPHEN 325 MG TAB PO PRN ×2 (02:45→10:45)
[2019-12-13] MEDS ORDERED: HYDROcodone-ACET 5/325MG TAB PO PRN ×2 (02:45→06:00)
[2019-12-13] MEDS ORDERED: TEMAZEPAM 15 MG CAP PO PRN (02:45)
[2019-12-13] MEDS ORDERED: DEXTROSE (50%) 50ML SYRG IV PRN (02:45)
[2019-12-13 03:12] VITALS: BP 97/61
[2019-12-13 05:00] VITALS: BP 97/61
[2019-12-13] MEDS ORDERED: FERR27TA2 PO (05:11)
[2019-12-13] MEDS ORDERED: POTA10TA51 PO (05:11)
[2019-12-13] MEDS: ACCU-CHEK COMFORT CURVE STRIP VI SCH ×4 (07:00→22:00)
[2019-12-13] MEDS: InsuLIN REG 1unit/0.01ml Soln (100units/ml) SC SCH ×4 (07:00→22:00)
[2019-12-13 08:50] VITALS: BP 99/69
[2019-12-13] MEDS ORDERED: PATIENTS OWN MEDICATION (ertapenem 1 GM) IV SCH (10:00)
[2019-12-13] MEDS ORDERED: ERTAPENEM SOD INJ 1 GM in SODIUM CHL 0.9% 50 ML IV SCH (10:00)
[2019-12-13] MEDS: ENOXAPARIN SOD 40 MG/0.4 ML SYRINGE SC SCH (10:59)
[2019-12-13] MEDS: FAMOTIDINE 20 MG TAB PO SCH ×2 (10:59→22:31)
[2019-12-13] MEDS: MORPHINE SULF INJ 2 MG/ML SYRINGE 1ML IV PRN ×2 (11:00→17:05)
[2019-12-13] MEDS: cefTRIAXone 1GM/50ML D5W 50 ML IV SCH (11:00)
[2019-12-13] MEDS: LINEZOLID 600MG/300ML 300 ML IV SCH ×2 (12:02→22:31)
[2019-12-13 13:00] VITALS: BP 122/80
[2019-12-13] MEDS ORDERED: ALBUAER3 IN (14:56)
[2019-12-13] MEDS ORDERED: ALBU0.084 NEB (14:56)
[2019-12-13] MEDS ORDERED: MAGN400T40 PO (14:56)
[2019-12-13] MEDS ORDERED: FER325T PO (14:58)
[2019-12-13 16:42] VITALS: BP 119/78
[2019-12-13 22:00] VITALS: BP 120/76
[2019-12-14] MEDS: MORPHINE SULF INJ 2 MG/ML SYRINGE 1ML IV PRN ×4 (02:49→21:42)
[2019-12-14 05:00] VITALS: BP 116/64
[2019-12-14 05:55] LABS: Basophils # (auto) 0 10 ^3/uL (0-0.2); Basophils % (auto) 0.6 % (0.0-2.0); Eosinophils # (auto) 0.2 10 ^3/uL (0-0.8); Hemoglobin 12.7 g/dL (12.2-16.2); Lymphocytes # (auto) 2.9 10 ^3/uL (0.4-5.4); Lymphocytes % (auto) 43.2 % (10.0-50.0); Mean Corpuscular Hemoglobin 29.7 pg (28.0-32.0); Mean Corpuscular Hgb Conc. 33.3 g/dL (32.0-36.0); Monocytes # (auto) 0.3 10 ^3/uL (0-1.3); Monocytes % (auto) 5.1 % (0.0-12.0); Neutrophils # (auto) 3.2 10 ^3/uL (1.6-8.6); Neutrophils % (auto) 48.1 % (37.0-80.0); Platelet Count (auto) 342 10^3/uL (140-450); Red Blood Cells 4.27 10^6/uL (4.0-5.20); Red Cell Distribution Width 13.1 % (11.8-14.3); White Blood Cell 6.7 10^3/uL (4.4-10.8)
[2019-12-14 06:09] LABS: BUN/Creatinine Ratio 18.5; Calcium 8.4 mg/dL (8.5-10.1); Potassium 3.8 mmol/L (3.5-5.1)
[2019-12-14] MEDS: ACCU-CHEK COMFORT CURVE STRIP VI SCH (06:11)
[2019-12-14] MEDS: InsuLIN REG 1unit/0.01ml Soln (100units/ml) SC SCH (06:12)
[2019-12-14 09:00] VITALS: BP 108/55
[2019-12-14] MEDS: LINEZOLID 600MG/300ML 300 ML IV SCH ×2 (09:42→20:27)
[2019-12-14] MEDS: cefTRIAXone 1GM/50ML D5W 50 ML IV SCH (09:43)
[2019-12-14] MEDS: ENOXAPARIN SOD 40 MG/0.4 ML SYRINGE SC SCH (09:43)
[2019-12-14] MEDS: FAMOTIDINE 20 MG TAB PO SCH ×2 (09:43→20:27)
[2019-12-14 13:00] VITALS: BP 130/61
[2019-12-14] MEDS ORDERED: CALCIUM CHL 100MG/ML 500 MG in D5W 5% 100 ML IV ONE (16:00)
[2019-12-14] MEDS: CALCIUM W/VIT D (600MG/400IU) TAB PO SCH ×2 (16:46→16:47)
[2019-12-14 17:00] VITALS: BP 104/66
[2019-12-14] MEDS ORDERED: CALCIUM W/VIT D (600MG/400IU) TAB PO SCH (18:00)
[2019-12-14 22:26] VITALS: BP 108/65
[2019-12-15] MEDS: MORPHINE SULF INJ 2 MG/ML SYRINGE 1ML IV PRN ×4 (03:51→22:04)
[2019-12-15 05:00] VITALS: BP 123/76
[2019-12-15 05:14] LABS: Basophils # (auto) 0.1 10 ^3/uL (0-0.2); Basophils % (auto) 0.8 % (0.0-2.0); Eosinophils # (auto) 0.3 10 ^3/uL (0-0.8); Eosinophils % (auto) 3.8 % (0.0-7.0); Hematocrit 37.8 % (36.0-46.0); Hemoglobin 12.6 g/dL (12.2-16.2); Lymphocytes # (auto) 2.8 10 ^3/uL (0.4-5.4); Lymphocytes % (auto) 40.5 % (10.0-50.0); Mean Corpuscular Hemoglobin 29.5 pg (28.0-32.0); Mean Corpuscular Hgb Conc. 33.4 g/dL (32.0-36.0); Mean Corpuscular Volume 88.5 fL (80.0-100.0); Monocytes # (auto) 0.4 10 ^3/uL (0-1.3); Monocytes % (auto) 5.6 % (0.0-12.0); Neutrophils # (auto) 3.4 10 ^3/uL (1.6-8.6); Neutrophils % (auto) 49.3 % (37.0-80.0); Platelet Count (auto) 328 10^3/uL (140-450); Red Blood Cells 4.27 10^6/uL (4.0-5.20); Red Cell Distribution Width 13.1 % (11.8-14.3); White Blood Cell 6.9 10^3/uL (4.4-10.8)
[2019-12-15 05:30] LABS: Albumin 2.8 g/dL (3.4-5.0); BUN/Creatinine Ratio 14.3; Calcium 7.9 mg/dL (8.5-10.1); Magnesium 2.1 mg/dL (1.6-2.6); Potassium 3.6 mmol/L (3.5-5.1)
[2019-12-15 05:31] LABS: INR 0.98 (0.9-1.15); Partial Thromboplastin Time 27.1 sec (23.64-32.05)
[2019-12-15 05:32] LABS: Bilirubin, Total 0.2 mg/dL (0.2-1.0); Phosphorus 3.6 mg/dL (2.5-4.90)
[2019-12-15 09:02] VITALS: BP 97/60
[2019-12-15] MEDS: cefTRIAXone 1GM/50ML D5W 50 ML IV SCH (09:06)
[2019-12-15] MEDS: CALCIUM W/VIT D (600MG/400IU) TAB PO SCH ×2 (09:06→18:04)
[2019-12-15] MEDS: ENOXAPARIN SOD 40 MG/0.4 ML SYRINGE SC SCH (09:07)
[2019-12-15] MEDS: FAMOTIDINE 20 MG TAB PO SCH ×2 (09:07→22:03)
[2019-12-15] MEDS: LINEZOLID 600MG/300ML 300 ML IV SCH ×2 (09:07→22:03)
[2019-12-15 12:51] VITALS: BP 103/61
[2019-12-15 16:49] VITALS: BP 133/89
[2019-12-15 22:11] VITALS: BP 121/81
[2019-12-16] VITALS (7 sets, daily range): BP systolic 94–133; BP diastolic 47–84
[2019-12-16] MEDS ORDERED: ALBUTEROL SULF 2.5 MG/0.5ML(0.5%) NEB SOLN ONE (00:31)
[2019-12-16] MEDS: ALBUTEROL SULF 2.5 MG/0.5ML(0.5%) NEB SOLN NEB PRN ×2 (00:33→20:08)
[2019-12-16] MEDS: MORPHINE SULF INJ 2 MG/ML SYRINGE 1ML IV PRN ×5 (02:11→22:50)
[2019-12-16 05:42] LABS: Basophils # (auto) 0 10 ^3/uL (0-0.2); Basophils % (auto) 0.3 % (0.0-2.0); Eosinophils # (auto) 0.3 10 ^3/uL (0-0.8); Eosinophils % (auto) 2.5 % (0.0-7.0); Hematocrit 37.4 % (36.0-46.0); Hemoglobin 12.6 g/dL (12.2-16.2); Lymphocytes # (auto) 2.9 10 ^3/uL (0.4-5.4); Lymphocytes % (auto) 26.8 % (10.0-50.0); Mean Corpuscular Hemoglobin 29.7 pg (28.0-32.0); Mean Corpuscular Hgb Conc. 33.8 g/dL (32.0-36.0); Mean Corpuscular Volume 88.1 fL (80.0-100.0); Monocytes # (auto) 0.5 10 ^3/uL (0-1.3); Monocytes % (auto) 4.5 % (0.0-12.0); Neutrophils # (auto) 7.1 10 ^3/uL (1.6-8.6); Neutrophils % (auto) 65.9 % (37.0-80.0); Platelet Count (auto) 351 10^3/uL (140-450); Red Blood Cells 4.25 10^6/uL (4.0-5.20); Red Cell Distribution Width 12.9 % (11.8-14.3); White Blood Cell 10.7 10^3/uL (4.4-10.8)
[2019-12-16 05:54] LABS: Potassium 3.6 mmol/L (3.5-5.1)
[2019-12-16 06:02] LABS: Albumin 2.9 g/dL (3.4-5.0); BUN/Creatinine Ratio 11.9; Bilirubin, Total 0.2 mg/dL (0.2-1.0); Calcium 8.4 mg/dL (8.5-10.1); Magnesium 2.1 mg/dL (1.6-2.6); Phosphorus 3.7 mg/dL (2.5-4.90); Total Protein 6.9 g/dL (6.4-8.2)
[2019-12-16] MEDS: CALCIUM W/VIT D (600MG/400IU) TAB PO SCH ×2 (07:53→17:21)
[2019-12-16] MEDS: cefTRIAXone 1GM/50ML D5W 50 ML IV SCH (07:54)
[2019-12-16] MEDS: ENOXAPARIN SOD 40 MG/0.4 ML SYRINGE SC SCH (10:00)
[2019-12-16] MEDS: FAMOTIDINE 20 MG TAB PO SCH ×2 (10:49→22:50)
[2019-12-16] MEDS: LINEZOLID 600MG/300ML 300 ML IV SCH ×2 (10:49→22:50)
[2019-12-17] MEDS: ALBUTEROL SULF 2.5 MG/0.5ML(0.5%) NEB SOLN NEB PRN ×2 (01:01→05:38)
[2019-12-17] MEDS: MORPHINE SULF INJ 2 MG/ML SYRINGE 1ML IV PRN ×4 (02:54→18:32)
[2019-12-17 04:41] VITALS: BP 104/76
[2019-12-17] MEDS: CALCIUM W/VIT D (600MG/400IU) TAB PO SCH ×2 (07:43→18:33)
[2019-12-17 09:00] VITALS: BP 130/65
[2019-12-17] MEDS: ENOXAPARIN SOD 40 MG/0.4 ML SYRINGE SC SCH (09:34)
[2019-12-17] MEDS: FAMOTIDINE 20 MG TAB PO SCH ×2 (09:34→22:21)
[2019-12-17] MEDS: LINEZOLID 600MG/300ML 300 ML IV SCH ×2 (09:35→22:00)
[2019-12-17] MEDS: cefTRIAXone 1GM/50ML D5W 50 ML IV SCH (09:35)
[2019-12-17 13:00] VITALS: BP 100/59
[2019-12-17 16:48] VITALS: BP 110/77
[2019-12-17 22:00] VITALS: BP 115/73
[2019-12-18] MEDS: MORPHINE SULF INJ 2 MG/ML SYRINGE 1ML IV PRN ×6 (01:04→22:01)
[2019-12-18 05:00] VITALS: BP 108/77
[2019-12-18] MEDS: cefTRIAXone 1GM/50ML D5W 50 ML IV SCH (08:36)
[2019-12-18] MEDS: CALCIUM W/VIT D (600MG/400IU) TAB PO SCH ×2 (08:36→18:00)
[2019-12-18 09:00] VITALS: BP 112/81
[2019-12-18] MEDS: LINEZOLID 600MG/300ML 300 ML IV SCH ×2 (09:30→21:44)
[2019-12-18] MEDS: FAMOTIDINE 20 MG TAB PO SCH ×2 (09:30→21:44)
[2019-12-18] MEDS: ENOXAPARIN SOD 40 MG/0.4 ML SYRINGE SC SCH (09:31)
[2019-12-18 11:32] LABS: Basophils # (auto) 0 10 ^3/uL (0-0.2); Basophils % (auto) 0.6 % (0.0-2.0); Eosinophils # (auto) 0.3 10 ^3/uL (0-0.8); Eosinophils % (auto) 3.7 % (0.0-7.0); Hematocrit 36.7 % (36.0-46.0); Hemoglobin 12.2 g/dL (12.2-16.2); Lymphocytes # (auto) 2.2 10 ^3/uL (0.4-5.4); Lymphocytes % (auto) 29.5 % (10.0-50.0); Mean Corpuscular Hemoglobin 29.3 pg (28.0-32.0); Mean Corpuscular Hgb Conc. 33.3 g/dL (32.0-36.0); Mean Corpuscular Volume 88.1 fL (80.0-100.0); Monocytes # (auto) 0.4 10 ^3/uL (0-1.3); Monocytes % (auto) 4.7 % (0.0-12.0); Neutrophils # (auto) 4.6 10 ^3/uL (1.6-8.6); Neutrophils % (auto) 61.5 % (37.0-80.0); Nucleated Red Blood Cells % 0.1 %; Platelet Count (auto) 353 10^3/uL (140-450); Red Blood Cells 4.16 10^6/uL (4.0-5.20); Red Cell Distribution Width 13.1 % (11.8-14.3); White Blood Cell 7.5 10^3/uL (4.4-10.8)
[2019-12-18 11:52] LABS: BUN/Creatinine Ratio 13.4; Calcium 8.6 mg/dL (8.5-10.1); Potassium 3.8 mmol/L (3.5-5.1)
[2019-12-18 13:00] VITALS: BP 106/72
[2019-12-18 17:00] VITALS: BP 108/66
[2019-12-18 22:08] VITALS: BP 119/60
[2019-12-19] MEDS: MORPHINE SULF INJ 2 MG/ML SYRINGE 1ML IV PRN ×3 (02:19→12:28)
[2019-12-19 05:41] VITALS: BP 100/58
[2019-12-19] MEDS: cefTRIAXone 1GM/50ML D5W 50 ML IV SCH (08:28)
[2019-12-19] MEDS: CALCIUM W/VIT D (600MG/400IU) TAB PO SCH (08:28)
[2019-12-19 09:00] VITALS: BP 111/68
[2019-12-19] MEDS: FAMOTIDINE 20 MG TAB PO SCH (09:47)
[2019-12-19] MEDS: LINEZOLID 600MG/300ML 300 ML IV SCH (09:47)
[2019-12-19] MEDS: ENOXAPARIN SOD 40 MG/0.4 ML SYRINGE SC SCH (09:47)
[2019-12-19 12:48] VITALS: BP 104/71
[2019-12-19 13:47] VITALS: BP 104/71
== END 2019-12-19 14:39 | disposition home or self-care (01) | DRG 463 ==
LOC: EDBD 19:32 → EDUNIT# 19:32 → ER 19:34 → OVERFLOW 19:35 → CENTRAL 12-13 03:10
PROVIDERS: ADMIT Nurse Practitioner; ATTEND Internal Medicine Nephrology
DX: N39.0 Urinary tract infection, site not specified (principal); G82.20 Paraplegia, unspecified; B95.2 Enterococcus as the cause of diseases classified elsewhere; E11.9 Type 2 diabetes mellitus without complications; E03.9 Hypothyroidism, unspecified; I10 Essential (primary) hypertension; M54.5 Low back pain; J45.909 Unspecified asthma, uncomplicated; Q05.9 Spina bifida, unspecified; Z80.0 Family history of malignant neoplasm of digestive organs; Z82.5 Family history of asthma and other chronic lower respiratory diseases; Z87.440 Personal history of urinary (tract) infections; Z83.3 Family history of diabetes mellitus; Z88.5 Allergy status to narcotic agent; Z88.0 Allergy status to penicillin; Z88.8 Allergy status to other drugs, medicaments and biological substances; Z88.1 Allergy status to other antibiotic agents; Z91.040 Latex allergy status
CPT/HCPCS: 36415; 71045; 80048; 80053; 80307; 81001; 81025; 82962; 83036; 83735; 84100; 84443; 84484; 85025; 85610; 85730; 87040; 87081; 87086; 93005; 94640; 97163; G0378; J0696; J1335; J2405; J7060

== ENCOUNTER 2019-12-30 22:36 | Emergency (ER) | payer MEDICAID ==
[~2019-12-30] VITALS: Ht 170.2 cm; Wt 113.4 kg
[~2019-12-30 22:36] MED LIST changes: -ACET-1156 PO; +ALBU0.084 NEB; -ALBU2TAB4 INH; +ALBUAER3 IN; +FER325T PO; +MAGN400T40 PO; +NITR-87 PO; -NITR100C44 PO; +POTA10TA51 PO
[2019-12-31 01:32] LABS: Basophils # (auto) 0.1 10 ^3/uL (0-0.2); Eosinophils # (auto) 0.3 10 ^3/uL (0-0.8); Eosinophils % (auto) 3.5 % (0.0-7.0); Hematocrit 38.9 % (36.0-46.0); Hemoglobin 13.1 g/dL (12.2-16.2); Lymphocytes # (auto) 3.3 10 ^3/uL (0.4-5.4); Lymphocytes % (auto) 40.9 % (10.0-50.0); Mean Corpuscular Hemoglobin 30.1 pg (28.0-32.0); Mean Corpuscular Hgb Conc. 33.8 g/dL (32.0-36.0); Monocytes # (auto) 0.4 10 ^3/uL (0-1.3); Monocytes % (auto) 5.2 % (0.0-12.0); Neutrophils # (auto) 3.9 10 ^3/uL (1.6-8.6); Neutrophils % (auto) 49.4 % (37.0-80.0); Nucleated Red Blood Cells % 0.1 %; Platelet Count (auto) 442 10^3/uL (140-450); Red Blood Cells 4.37 10^6/uL (4.0-5.20); Red Cell Distribution Width 13.4 % (11.8-14.3)
[2019-12-31 01:50] LABS: Albumin 3.3 g/dL (3.4-5.0); BUN/Creatinine Ratio 17.9; Calcium 8.7 mg/dL (8.5-10.1); Potassium 3.8 mmol/L (3.5-5.1)
[2019-12-31 01:53] LABS: Bilirubin, Total 0.3 mg/dL (0.2-1.0); Total Protein 7.9 g/dL (6.4-8.2)
[2019-12-31 05:58] LABS: Urine Bacteria MANY /hpf (None Seen); Urine Blood Negative /uL (Negative); Urine Mucus FEW (None Seen); Urine Specific Gravity 1.015 (1.001-1.035); Urine WBC 129 /hpf (0 - 5)
[2019-12-31] MEDS ORDERED: CIPROFLOXACIN 400MG/200ML 200 ML IV ONE (07:45)
[2019-12-31] MEDS ORDERED: SODIUM CHLORIDE 0.9% 1,000 ML IV ONE (08:45)
[2019-12-31] MEDS ORDERED: HYDROcodone-ACET 10/325MG TAB PO ONE (09:00)
[2019-12-31 10:17] VITALS: BP 124/84
[2019-12-31] MEDS ORDERED: diphenhdrAMINE HCL 50 MG/1 ML VL IV ONE (10:45)
== END 2019-12-31 11:09 | disposition home or self-care (01) ==
LOC: ER 22:36
DX: N39.0 Urinary tract infection, site not specified (principal); J45.909 Unspecified asthma, uncomplicated; E11.9 Type 2 diabetes mellitus without complications; E07.9 Disorder of thyroid, unspecified; E44.1 Mild protein-calorie malnutrition; Q05.9 Spina bifida, unspecified; Z88.5 Allergy status to narcotic agent; Z91.040 Latex allergy status; Z88.0 Allergy status to penicillin; Z88.1 Allergy status to other antibiotic agents; Z88.8 Allergy status to other drugs, medicaments and biological substances
CPT/HCPCS: 36415; 80053; 81001; 85025; 93005; 96365; 96375; 99284; J0744; J1200; J7030

== ENCOUNTER 2020-01-09 01:00 | Inpatient (IN) | payer MEDICAID ==
[~2020-01-09] VITALS: Ht 170.2 cm; Wt 119.4 kg
[2020-01-09] MEDS ORDERED: SODIUM CHLORIDE 0.9% 1,000 ML IV ONE (02:30)
[2020-01-09 02:58] LABS: Basophils # (auto) 0.1 10 ^3/uL (0-0.2); Eosinophils # (auto) 0.2 10 ^3/uL (0-0.8); Eosinophils % (auto) 2.5 % (0.0-7.0); Hematocrit 39.4 % (36.0-46.0); Hemoglobin 13.1 g/dL (12.2-16.2); Lymphocytes % (auto) 40.3 % (10.0-50.0); Mean Corpuscular Hemoglobin 29.7 pg (28.0-32.0); Mean Corpuscular Hgb Conc. 33.1 g/dL (32.0-36.0); Mean Corpuscular Volume 89.7 fL (80.0-100.0); Monocytes # (auto) 0.5 10 ^3/uL (0-1.3); Monocytes % (auto) 6.2 % (0.0-12.0); Neutrophils # (auto) 3.7 10 ^3/uL (1.6-8.6); Platelet Count (auto) 370 10^3/uL (140-450); Red Blood Cells 4.39 10^6/uL (4.0-5.20); White Blood Cell 7.4 10^3/uL (4.4-10.8)
[2020-01-09 03:20] LABS: Albumin 3.5 g/dL (3.4-5.0); Calcium 8.7 mg/dL (8.5-10.1); Potassium 4.1 mmol/L (3.5-5.1)
[2020-01-09 03:24] LABS: BUN/Creatinine Ratio 20.3; Bilirubin, Total 0.2 mg/dL (0.2-1.0); Total Protein 8.2 g/dL (6.4-8.2)
[2020-01-09] MEDS ORDERED: levoFLOXacin 750MG 150 ML IV ONE (03:45)
[2020-01-09] MEDS ORDERED: diphenhdrAMINE HCL 50 MG/1 ML VL IV ONE (04:45)
[2020-01-09] MEDS ORDERED: ONDANSETRON HCL 4 MG/2 ML VIAL IV ONE (04:45)
[2020-01-09] MEDS ORDERED: MORPHINE SULFATE 4 MG/ML SYR/VIAL IV ONE (04:45)
[2020-01-09 05:14] LABS: Urine Bacteria MOD /hpf (None Seen); Urine Blood Negative /uL (Negative); Urine Mucus FEW (None Seen); Urine WBC 29 /hpf (0 - 5)
[2020-01-09] MEDS ORDERED: ACETAMINOPHEN 325 MG TAB PO PRN (05:30)
[2020-01-09] MEDS ORDERED: ONDANSETRON HCL 4 MG/2 ML VIAL IV PRN (05:30)
[2020-01-09] MEDS ORDERED: TEMAZEPAM 15 MG CAP PO PRN (05:30)
[2020-01-09 09:26] VITALS: BP 100/65
[2020-01-09] MEDS: LACTULOSE 20Gm/30ML SOLN PO SCH (10:00)
[2020-01-09] MEDS ORDERED: HYDROcodone-ACET 5/325MG TAB PO PRN (10:00)
[2020-01-09] MEDS ORDERED: PATIENTS OWN MEDICATION (ertapenem 1 GM) IV SCH (10:00)
--- NOTE | 2020-01-09 10:20 | NUR ---
MS admit from ER MAURO AHUMADA admitted to tele/MS after SBAR received. Patient oriented to Juanito Camarena primary RN, unit, room, bed, and unit policies regarding patient care and visiting hours. Patient weighed by bedscale and encouraged to call if they need something. All questions and concerns addressed, patient verbalized understanding. Note: Patient noted to be aaox4, pleasant and cooperative at this time. Report received from PHYSICIAN GENERAL INTERNAL MEDICINE by phone prior to patient's arrival to the floor.Admission assessment done and charted. Will continue to monitor patient.
[2020-01-09] MEDS: ENOXAPARIN SOD 40 MG/0.4 ML SYRINGE SC SCH (10:52)
[2020-01-09] MEDS: FAMOTIDINE 20 MG TAB PO SCH ×2 (10:52→21:13)
[2020-01-09] MEDS: diphenhdrAMINE HCL 50 MG/1 ML VL IV PRN ×2 (12:04→21:14)
[2020-01-09] MEDS: MORPHINE SULF INJ 2 MG/ML SYRINGE 1ML IV PRN ×3 (12:04→21:14)
[2020-01-09] MEDS: SOD CHL 0.45% 1,000 ML IV SCH (12:23)
[2020-01-09] MEDS: ERTAPENEM SOD INJ 1 GM in SODIUM CHL 0.9% 50 ML IV SCH (12:23)
[2020-01-09] MEDS ORDERED: CIPR-173 PO (12:31)
[2020-01-09] MEDS ORDERED: ALBU108A5 IN (12:31)
[2020-01-09 13:15] VITALS: BP 118/70
--- NOTE | 2020-01-09 13:30 | NUR ---
Respiratory note: PT IS AWAKE, AND ALERT. NO RESPIRATORY DISTRESS NOTED. SPO2 95% ON RA, HR 71, RR 18, BS CLEAR BILATERALLY. PRN MEDNEB TX NOT INDICATED. PT INFORMED TO PUSH CALL BUTTON IF INCREASED WOB, SOB, OR WHEEZING OCCURS
[2020-01-09 17:34] VITALS: BP 124/84
--- NOTE | 2020-01-09 20:02 | NUR ---
Respiratory note: Assessed pt for prn medneb tx. HR 69, RR 20, SPO2 97% on room air. Breath sounds clear/dim t/o. Pt denies SOB, no s/s of distress. Medneb tx not indicated at this time. Pt aware to call for RT if needed.
--- NOTE | 2020-01-09 20:15 | NUR ---
PATIENT ABRAHAM ON BED, AWAKE, ALERT AND ORIENTED X4. SWANSON DRAINING TO GRAVITY. COMPLAINT OF PAIN TO LOWER BACK.
[2020-01-09 21:17] VITALS: BP 124/84
[2020-01-09 21:55] VITALS: BP 110/65
[2020-01-10] MEDS: SOD CHL 0.45% 1,000 ML IV SCH ×2 (02:29→13:47)
--- NOTE | 2020-01-10 02:29 | NUR ---
RESTING ON BED AT THIS TIME WITH EYES CLOSED WITH NO RESPIRATORY DISTRESS NOTED.
[2020-01-10] MEDS: MORPHINE SULF INJ 2 MG/ML SYRINGE 1ML IV PRN ×2 (04:18→08:34)
[2020-01-10] MEDS: diphenhdrAMINE HCL 50 MG/1 ML VL IV PRN ×3 (04:19→18:32)
[2020-01-10 05:49] VITALS: BP 108/56
[2020-01-10 08:00] VITALS: BP 101/58
[2020-01-10 09:00] VITALS: BP 101/58
[2020-01-10] MEDS: LACTULOSE 20Gm/30ML SOLN PO SCH (10:00)
[2020-01-10] MEDS: ENOXAPARIN SOD 40 MG/0.4 ML SYRINGE SC SCH (10:20)
[2020-01-10] MEDS: FAMOTIDINE 20 MG TAB PO SCH ×2 (10:20→22:00)
[2020-01-10] MEDS: ERTAPENEM SOD INJ 1 GM in SODIUM CHL 0.9% 50 ML IV SCH (10:21)
--- NOTE | 2020-01-10 11:28 | NUR ---
Benavides catheter insertion Patient's benavides noted to have popped out with the balloon intact. Benavides catheter 16 gauge Ukrainian inserted with clean sterile technique. Patient tolerated it well.
[2020-01-10] MEDS: HYDROmorphone HCL 2 MG/ML VL IV PRN ×2 (12:38→18:33)
[2020-01-10 13:00] VITALS: BP 116/71
[2020-01-10 16:48] VITALS: BP 137/79
--- NOTE | 2020-01-10 18:38 | NUR ---
RT NOTE: PT ON ROOM AIR WITH NO DISTRESS NOTED. PT DENIES SOB, BS CLEAR SPO2 94% ON ROOM AIR HR 79, RR 18. NO TX INDICATED AT THIS TIME. PT NOTIFIED OF PRN MED NEB TX AND TO HAVE RT PAGED IF SOB OCCURS.
--- NOTE | 2020-01-10 19:20 | NUR ---
Opening Shift Note Assumed care of patient, awake and alert. No S/S of distress/SOB. The patient c/o back pain but states that she will wait for her pain medication. Bed is locked in lowest position with call light within reach. Instructed on POC and to call for assist PRN, will continue to monitor for changes Q1hr and PRN.
[2020-01-10 22:00] VITALS: BP 118/68
[2020-01-10] MEDS: ALBUTEROL SULF 2.5 MG/0.5ML(0.5%) NEB SOLN NEB PRN (22:52)
--- NOTE | 2020-01-11 01:15 | NUR ---
IV insertion IV access obtained, via clean sterile technique by inserting 22 gauge catheter at LEFT FA after 1 attempt(s). IV secured properly. No trauma to site. Patient tolerated well.
--- NOTE | 2020-01-11 01:20 | NUR ---
PAIN ASSESSMENT The patient c/o 7/10 lower back pain and is requesting pain medication. Will treat with PRN pain Dilaudid and will continue to monitor the patient's pain level.
[2020-01-11] MEDS: HYDROmorphone HCL 2 MG/ML VL IV PRN ×4 (01:25→19:44)
[2020-01-11] MEDS: diphenhdrAMINE HCL 50 MG/1 ML VL IV PRN ×4 (01:25→19:44)
[2020-01-11] MEDS: SOD CHL 0.45% 1,000 ML IV SCH (02:00)
--- NOTE | 2020-01-11 02:25 | NUR ---
PAIN REASSESSMENT The patient reports that her pain is currently 5/10. Patient is resting comfortably in bed. Will continue to monitor the patient's status.
[2020-01-11 05:00] VITALS: BP 133/83
--- NOTE | 2020-01-11 08:00 | NUR ---
OPENING SHIFT NOTE ASSUMED CARE OF PATIENT AWAKE AND ALERT. NO S/S OF DISTRESS NOTED OR COMPLAINTS OF PAIN. PATIENT UPDATED ON POC FOR THE DAY AND ALL QUESTIONS ANSWERED. BED IS IN LOWEST, LOCKED POSITION WITH SIDE RAILS UP X2 AND CALL LIGHT WITHIN REACH. WILL CONTINUE TO MONITOR Q1H AND PRN.
[2020-01-11 09:00] VITALS: BP 120/77
[2020-01-11] MEDS: ERTAPENEM SOD INJ 1 GM in SODIUM CHL 0.9% 50 ML IV SCH (09:53)
[2020-01-11] MEDS: LACTULOSE 20Gm/30ML SOLN PO SCH (09:54)
[2020-01-11] MEDS: ENOXAPARIN SOD 40 MG/0.4 ML SYRINGE SC SCH (09:54)
[2020-01-11] MEDS: FAMOTIDINE 20 MG TAB PO SCH ×2 (09:54→22:00)
--- NOTE | 2020-01-11 10:05 | NUR ---
Respiratory note: PRN MED NEB TX NOT WANTED OR INDICATED AT THIS TIME. HR 79, RR 14, SPO2 98% ON RA, BS CLEAR AND DIMINISHED. NO SIGNS OR SYMPTOMS OF RESPIRATORY DISTRESS NOTED AT THIS TIME. PT INFORMED TO HIT CALL BUTTON IF FEELING SOB OR WHEEZING.
[2020-01-11] MEDS ORDERED: CIPROFLOXACIN HCL 500 MG TAB PO ONE (12:15)
[2020-01-11 13:00] VITALS: BP 138/90
[2020-01-11] MEDS: LINEZOLID 600MG TABLET PO SCH ×2 (13:10→22:00)
[2020-01-11 13:59] LABS: Basophils # (auto) 0 10 ^3/uL (0-0.2); Basophils % (auto) 0.6 % (0.0-2.0); Eosinophils # (auto) 0.2 10 ^3/uL (0-0.8); Eosinophils % (auto) 3.5 % (0.0-7.0); Hematocrit 38.1 % (36.0-46.0); Hemoglobin 12.1 g/dL (12.2-16.2); Lymphocytes # (auto) 1.8 10 ^3/uL (0.4-5.4); Lymphocytes % (auto) 31.8 % (10.0-50.0); Mean Corpuscular Hgb Conc. 31.7 g/dL (32.0-36.0); Mean Corpuscular Volume 94.6 fL (80.0-100.0); Monocytes # (auto) 0.3 10 ^3/uL (0-1.3); Monocytes % (auto) 4.6 % (0.0-12.0); Neutrophils # (auto) 3.4 10 ^3/uL (1.6-8.6); Neutrophils % (auto) 59.5 % (37.0-80.0); Nucleated Red Blood Cells % 0.1 %; Platelet Count (auto) 302 10^3/uL (140-450); Red Blood Cells 4.03 10^6/uL (4.0-5.20); Red Cell Distribution Width 14.5 % (11.8-14.3); White Blood Cell 5.8 10^3/uL (4.4-10.8)
[2020-01-11 14:10] LABS: Calcium 8.8 mg/dL (8.5-10.1)
[2020-01-11 14:14] LABS: BUN/Creatinine Ratio 12.7
[2020-01-11 17:00] VITALS: BP 117/73
--- NOTE | 2020-01-11 18:06 | NUR ---
Respiratory note: PT CURRENTLY ON RA. SPO2 97%,HR 73, RR 18. NO DISTRESS NOTED. PT AWAKE AND ALERT AT THIS TIME. BS DIM T/O. PRN TX NOT INDICATED AND PT AWARE TO CALL FOR TX IF SOB/WHEEZING. WILL CONTINUE TO MONITOR PT.
--- NOTE | 2020-01-11 19:35 | NUR ---
Opening Shift Note Assumed care of patient, awake and alert. No S/S of distress. The patient complains of back pain with a severity of 8/10 and requested pain medication. The patient also states that she requested a breathing treatment because she feels SOB but RT has not shown up. Will treat pain with PRN Dilaudid 1 mg and page RT for breathing treatment. Bed is locked in lowest position with call light within reach. Instructed on POC and to call for assist PRN, will continue to monitor for changes Q1hr and PRN.
[2020-01-11] MEDS: ALBUTEROL SULF 2.5 MG/0.5ML(0.5%) NEB SOLN NEB PRN (19:52)
--- NOTE | 2020-01-11 20:14 | NUR ---
PAIN REASSESSMENT The patient states that her pain is currently 4/10. Will continue to monitor the patient's pain level.
[2020-01-11 22:00] VITALS: BP 121/66
[2020-01-11] MEDS: CIPROFLOXACIN HCL 500 MG TAB PO SCH (22:00)
--- NOTE | 2020-01-12 01:25 | NUR ---
PAIN ASSESSMENT Patient reports having 7/10 back pain and is requesting pain medication. Will treat with PRN Dilaudid and will continue to monitor the patient's pain level.
[2020-01-12] MEDS: HYDROmorphone HCL 2 MG/ML VL IV PRN ×4 (01:34→20:35)
[2020-01-12] MEDS: diphenhdrAMINE HCL 50 MG/1 ML VL IV PRN ×4 (01:34→20:35)
[2020-01-12 05:00] VITALS: BP 111/68
--- NOTE | 2020-01-12 08:00 | NUR ---
OPENING SHIFT NOTE ASSUMED CARE OF PATIENT AWAKE AND ALERT. NO S/S OF DISTRESS NOTED. PATIENT UPDATED ON POC FOR THE DAY AND ALL QUESTIONS ANSWERED. BED IS IN LOWEST, LOCKED POSITION WITH SIDE RAILS UP X2 AND CALL LIGHT WITHIN REACH. WILL CONTINUE TO MONITOR Q1H AND PRN.
[2020-01-12 08:25] VITALS: BP 115/68
[2020-01-12] MEDS: CIPROFLOXACIN HCL 500 MG TAB PO SCH ×2 (09:47→22:00)
[2020-01-12] MEDS: FAMOTIDINE 20 MG TAB PO SCH ×2 (09:47→22:00)
[2020-01-12] MEDS: ENOXAPARIN SOD 40 MG/0.4 ML SYRINGE SC SCH (09:47)
[2020-01-12] MEDS: LINEZOLID 600MG TABLET PO SCH ×2 (09:47→22:00)
[2020-01-12] MEDS: LACTULOSE 20Gm/30ML SOLN PO SCH (09:48)
--- NOTE | 2020-01-12 11:13 | NUR ---
Est energy needs [id number] kcal (14-16 kcal/kg BW 125.5kg) est protein needs 61-92g (1-1.5g/kg BW 125.5 kg) Will reassess prn Addendum: 01/12/20 at [address] Amended: Links added.
[2020-01-12 12:55] VITALS: BP 147/71
[2020-01-12 17:17] VITALS: BP 121/73
[2020-01-12] MEDS: ALBUTEROL SULF 2.5 MG/0.5ML(0.5%) NEB SOLN NEB PRN (19:01)
[2020-01-12 22:00] VITALS: BP 111/73
[2020-01-13] VITALS (7 sets, daily range): BP systolic 101–143; BP diastolic 50–88
[2020-01-13 05:19] LABS: Basophils # (auto) 0 10 ^3/uL (0-0.2); Basophils % (auto) 0.3 % (0.0-2.0); Eosinophils # (auto) 0.2 10 ^3/uL (0-0.8); Eosinophils % (auto) 3.3 % (0.0-7.0); Hematocrit 34.8 % (36.0-46.0); Hemoglobin 11.6 g/dL (12.2-16.2); Lymphocytes # (auto) 2.3 10 ^3/uL (0.4-5.4); Lymphocytes % (auto) 30.4 % (10.0-50.0); Mean Corpuscular Hemoglobin 30.1 pg (28.0-32.0); Mean Corpuscular Hgb Conc. 33.3 g/dL (32.0-36.0); Mean Corpuscular Volume 90.2 fL (80.0-100.0); Monocytes # (auto) 0.4 10 ^3/uL (0-1.3); Neutrophils # (auto) 4.6 10 ^3/uL (1.6-8.6); Platelet Count (auto) 309 10^3/uL (140-450); Red Blood Cells 3.86 10^6/uL (4.0-5.20); Red Cell Distribution Width 13.5 % (11.8-14.3); White Blood Cell 7.5 10^3/uL (4.4-10.8)
[2020-01-13 05:38] LABS: BUN/Creatinine Ratio 12.3; Calcium 8.4 mg/dL (8.5-10.1); Potassium 3.8 mmol/L (3.5-5.1)
[2020-01-13] MEDS: FAMOTIDINE 20 MG TAB PO SCH ×2 (08:35→21:54)
[2020-01-13] MEDS: ENOXAPARIN SOD 40 MG/0.4 ML SYRINGE SC SCH (08:35)
[2020-01-13] MEDS: CIPROFLOXACIN HCL 500 MG TAB PO SCH (08:35)
[2020-01-13] MEDS: HYDROmorphone HCL 2 MG/ML VL IV PRN ×3 (08:35→21:55)
[2020-01-13] MEDS: diphenhdrAMINE HCL 50 MG/1 ML VL IV PRN ×3 (08:36→21:55)
--- NOTE | 2020-01-13 08:42 | NUR ---
Respiratory note: PT CURRENTLY ON RA. SPO2 97% ON ROOM AIR,HR 82, RR 18. NO DISTRESS NOTED. PT AWAKE AND ALERT AT THIS TIME. BS DIM T/O. PRN TX NOT INDICATED AND PT AWARE TO CALL FOR TX IF SOB/WHEEZING. WILL CONTINUE TO MONITOR PT.
[2020-01-13] MEDS: LINEZOLID 600MG TABLET PO SCH ×2 (09:01→21:54)
[2020-01-13] MEDS: LACTULOSE 20Gm/30ML SOLN PO SCH (10:00)
[2020-01-13] MEDS: ERTAPENEM SOD INJ 1 GM in SODIUM CHL 0.9% 50 ML IV SCH (10:00)
--- NOTE | 2020-01-13 13:50 | NUR ---
Midline Placement: Patient educated on need for midline placement. All risks and benefits explained and all questions and concerns addresses prior to procedure. 18g/10cm midline inserted via right cephalic vein using Ultrasound. Sterile technique utilized. Blood return obtained from lumen and flushed easily with NS using proper technique. Midline secured with saline lock; biodisc and occlusive dressing applied. Primary RN notified. Midline lot #[id number]
--- NOTE | 2020-01-13 14:28 | NUR ---
1400 O - Faxed to [facility] at [phone] face sheet, order for home IV ABx, H/P, labs, meds, discharge summary. Pending accepting and delivery of supplies.
--- NOTE | 2020-01-13 14:57 | NUR ---
D/C Planning Regarding social service consult for home IV abx and benavides care. MARIELA Rivera will complete IV abx. Faxed clinical information to [facility]. Per Svetlana with [facility] [phone] patient has been accepted and service to start within 24hrs upon d.c day.
--- NOTE | 2020-01-13 15:10 | NUR ---
assessment Patient is a 35 year old female who is alert and oriented. Prior to admission patient lived home with family and functioned with assistance. Per patient she will return home to her prior living arrangements post discharge and family will transport her home. Patient has crutches and a wheelchair for home use. Patient has an [facility] caregiver. Patients PCP is Dr Mead. Patient has a consult for home IV ABX. Per patient her can help with the IV ABX when nurses are not available. I informed her Susana MORENO! will be working with casework specialist on IV ABX. I informed patient she has a right to speak to a secondary social studies teacher regarding all care. I informed patient she has a right to participate in any and all discharge planning. Patient is aware of visiting hours on the hospital floor. I informed patient she has a right to privacy. Patient does not have a POA or an advanced directive. I have offered patient information on POA and advanced directives. I informed the patient the advantages and benefits of having an Advanced Directive. Patient verbalized understanding and agreed to discharge plan home. Addendum: 01/13/20 at 1512 by Mellissa WARD Amended: Links added.
--- NOTE | 2020-01-13 15:44 | NUR ---
Obtain authorization from [facility] for [facility] [id number].
--- NOTE | 2020-01-13 16:54 | NUR ---
PATIENT REFUSED HOME HEALTH. MD UPDATED.
--- NOTE | 2020-01-13 16:54 | NUR ---
PATIENT AGREED TO SNF PER DR SHERMAN NEW ORDER FOR CONSULT S.S.
--- NOTE | 2020-01-13 19:18 | NUR ---
OPENING SHIFT NOTE ASSUMED CARE OF PATIENT. PATIENT IS AWAKE, ALERT, AND ORIENTED x 4. NO S/S OF RESPIRATORY DISTRESS NOTED. RESPIRATIONS ARE REGULAR AND NON-LABORED. BED IS IN LOWEST LOCKED POSITION, SIDE RAILS UP X 2 AND CALL LIGHT WITHIN REACH. SWANSON IS PATENT AND BELOW THE BLADDER. POC DISCUSSED WITH THE PATIENT. PATIENT INSTRUCTED TO CALL FOR ASSISTANCE NEEDED. WILL CONTINUE TO MONITOR Q1H AND PRN.
[2020-01-13] MEDS: ALBUTEROL SULF 2.5 MG/0.5ML(0.5%) NEB SOLN NEB PRN (20:18)
[2020-01-14] MEDS: diphenhdrAMINE HCL 50 MG/1 ML VL IV PRN ×3 (03:55→16:57)
[2020-01-14] MEDS: HYDROmorphone HCL 2 MG/ML VL IV PRN ×4 (03:56→21:25)
[2020-01-14 05:30] VITALS: BP 115/76
[2020-01-14 09:00] VITALS: BP 128/81
--- NOTE | 2020-01-14 09:07 | NUR ---
PATIENT WILL NEED COVID TEST PER DR SHERMAN.
[2020-01-14] MEDS: ENOXAPARIN SOD 40 MG/0.4 ML SYRINGE SC SCH (09:50)
[2020-01-14] MEDS: FAMOTIDINE 20 MG TAB PO SCH ×2 (09:51→21:25)
[2020-01-14] MEDS: ERTAPENEM SOD INJ 1 GM in SODIUM CHL 0.9% 50 ML IV SCH (09:59)
[2020-01-14] MEDS: LACTULOSE 20Gm/30ML SOLN PO SCH (10:00)
--- NOTE | 2020-01-14 10:00 | NUR ---
COVID SAMPLE TRANSPORTED TO LAB AND LOGGED IN BOOK.
[2020-01-14 12:53] VITALS: BP 124/79
--- NOTE | 2020-01-14 15:00 | NUR ---
Respiratory note: PT ASSESSED FOR PRN MED NEB TX, PT IS AWAKE/ALERT TALKING IN PHONE STATES SHE DOES NOT NEED A TX AND WILL CALL IF SHE DOES. NO DISTRESS NOTED.
--- NOTE | 2020-01-14 16:42 | NUR ---
D/C Planning Regarding social service consult for SNF placement for IV abx for 9 days and benavides care. F[facility]ed clinical [facility] to [facility]. Per Khalif [facility] they cant accept patient now due to no female beds. Per Analy Fisher they can accept patient and a (+) COVID test is needed before patient can be transfer to facility. Informed OLENA Calvin this morning at 8:15am. Faxed clinical information to [facility] Requesting authorization for facility. Obtain authorization from [facility] for SNF [id number] and transportation [id number]. Placed a follow up called to Analy Fisher to provide her with authorization. Per Analy Fisher patient has been accepted to room 404 bed A accepting MD, Dr. Lott. Advised OLENA Calvin to fax (-) COVID result to [facility] . Informed OLENA Calvin transportation form request will be faxed to [facility] requesting for a 20:30. Per Chelsea with [facility] transportation has been arranged with [employer] with a 20:30 chart picker time via bariatric bed.
[2020-01-14 17:00] VITALS: BP 132/82
--- NOTE | 2020-01-14 18:23 | NUR ---
FAXED COVID NEGATIVE RESULTS TO [facility] [phone]
--- NOTE | 2020-01-14 18:33 | NUR ---
CALLED REPORT TO KRISTY HENLEY SEWARD [phone].
--- NOTE | 2020-01-14 18:48 | NUR ---
PT ASSESSED FOR PRN MED NEB TX. SPO2 94% ON RA, HR 100. PT DENIES ANY RESPIRATORY DISTRESS. NO TX INDICATED. PT IS AWARE TO HAVE RT PAGED IF TX NEEDED.
--- NOTE | 2020-01-14 22:10 | NUR ---
PT discharge from hospital to [facility]. no acute distress noted, pt medicated with dilaudid felling better.
== END 2020-01-14 22:17 | DRG 463 ==
LOC: ER 01:02 → OVERFLOW 01:03 → CENTRAL 09:16
PROVIDERS: ADMIT Nurse Practitioner; ATTEND Internal Medicine
DX: N39.0 Urinary tract infection, site not specified (principal); E66.01 Morbid (severe) obesity due to excess calories; N31.9 Neuromuscular dysfunction of bladder, unspecified; Q05.9 Spina bifida, unspecified; G82.20 Paraplegia, unspecified; B96.1 Klebsiella pneumoniae [K. pneumoniae] as the cause of diseases classified elsewhere; B95.2 Enterococcus as the cause of diseases classified elsewhere; E11.9 Type 2 diabetes mellitus without complications; G89.29 Other chronic pain; J45.909 Unspecified asthma, uncomplicated; J98.11 Atelectasis; K57.30 Diverticulosis of large intestine without perforation or abscess without bleeding; K59.00 Constipation, unspecified; D64.9 Anemia, unspecified; M54.9 Dorsalgia, unspecified; Z99.3 Dependence on wheelchair; Z98.84 Bariatric surgery status; Z83.3 Family history of diabetes mellitus; Z82.5 Family history of asthma and other chronic lower respiratory diseases; Z80.0 Family history of malignant neoplasm of digestive organs; Z90.49 Acquired absence of other specified parts of digestive tract; Z88.0 Allergy status to penicillin; Z71.3 Dietary counseling and surveillance; Z88.6 Allergy status to analgesic agent; Z88.1 Allergy status to other antibiotic agents; Z91.040 Latex allergy status; Z68.39 Body mass index [BMI] 39.0-39.9, adult
CPT/HCPCS: 36415; 51702; 74176; 80048; 80053; 81001; 85025; 87081; 87086; 87088; 87186; 93005; 94640; 96361; 96365; 96366; 96375; G0378; J1335; J1956; J2405

== ENCOUNTER 2020-07-01 21:06 | Emergency (ER) | payer MEDICAID ==
[~2020-07-01] VITALS: Ht 170.2 cm; Wt 121.1 kg
[2020-07-01 21:06] VITALS: BP 134/67
[~2020-07-01 21:06] MED LIST changes: +ALBU108A5 IN; -ALBUAER3 IN; +CIPR-173 PO; -NITR-87 PO
== END 2020-07-01 23:08 | disposition left against medical advice (07) ==
LOC: ER 21:08
DX: N39.0 Urinary tract infection, site not specified (principal); Z53.21 Procedure and treatment not carried out due to patient leaving prior to being seen by health care provider

== ENCOUNTER 2020-07-13 16:02 | Observation (INO) | payer MEDICAID ==
[2020-07-13 17:34] LABS: Urine Bacteria FEW /hpf (None Seen); Urine Blood Negative /uL (Negative); Urine Mucus FEW (None Seen); Urine Specific Gravity 1.015 (1.001-1.035); Urine WBC 46 /hpf (0 - 5)
[2020-07-13 17:44] LABS: Amphetamine Screen, Urine NEGATIVE (NEGATIVE); Barbiturate Scree,Urine NEGATIVE (NEGATIVE); Benzodiazephine Screen, Urine NEGATIVE (NEGATIVE); Cannabinoid Screen, Urine NEGATIVE (NEGATIVE); Cocaine Screen, Urine NEGATIVE (NEGATIVE); Opiate Scree,Urine NEGATIVE (NEGATIVE); Phencyclidine Screen, Urine NEGATIVE (NEGATIVE)
== END 2020-07-13 18:15 | disposition home or self-care (01) ==
LOC: LDRP 16:02
PROVIDERS: ADMIT Specialist; ATTEND Specialist
DX: O42.912 Preterm premature rupture of membranes, unspecified as to length of time between rupture and onset of labor, second trimester (principal); Z91.040 Latex allergy status; Z88.0 Allergy status to penicillin; Z79.899 Other long term (current) drug therapy; Z3A.20 20 weeks gestation of pregnancy
CPT/HCPCS: 59025; 80307; 81001; 81002; 84112; G0378; Q0114

== ENCOUNTER 2020-07-16 22:40 | Observation (INO) | payer MEDICAID ==
[~2020-07-16] VITALS: Ht 170.2 cm; Wt 127.0 kg
== END 2020-07-17 01:25 | disposition home or self-care (01) ==
LOC: LDRP 22:40
PROVIDERS: ADMIT Obstetrics & Gynecology; ATTEND Obstetrics & Gynecology
DX: O99.891 Other specified diseases and conditions complicating pregnancy (principal); M54.9 Dorsalgia, unspecified; O26.892 Other specified pregnancy related conditions, second trimester; R10.9 Unspecified abdominal pain; O42.912 Preterm premature rupture of membranes, unspecified as to length of time between rupture and onset of labor, second trimester; Z3A.20 20 weeks gestation of pregnancy; Z91.040 Latex allergy status
CPT/HCPCS: 59025; 76805; 81002; G0378

== ENCOUNTER 2020-12-20 01:42 | Emergency (ER) | payer MEDICAID, OTHER ==
[~2020-12-20] VITALS: Ht 170.2 cm; Wt 122.5 kg
[2020-12-20] MEDS ORDERED: MORPHINE SULFATE INJECTION 2 MG/ML SYRG IM ONE (07:15)
[2020-12-20] MEDS ORDERED: ONDANSETRON HCL 4 MG/2 ML VIAL IV ONE (07:15)
[2020-12-20 08:37] VITALS: BP 123/87
[2020-12-20] MEDS ORDERED: MORPHINE SULFATE 4 MG/ML SYR/VIAL IV ONE ×2 (08:45→12:00)
[2020-12-20] MEDS ORDERED: diphenhdrAMINE HCL 25 MG CAP PO ONE (08:45)
[2020-12-20 08:57] LABS: Basophils # (auto) 0.1 10 ^3/uL (0-0.2); Basophils % (auto) 1.5 % (0.0-2.0); Eosinophils # (auto) 0.2 10 ^3/uL (0-0.8); Eosinophils % (auto) 2.5 % (0.0-7.0); Hematocrit 38.9 % (36.0-46.0); Hemoglobin 13.1 g/dL (12.2-16.2); Lymphocytes # (auto) 3.2 10 ^3/uL (0.4-5.4); Lymphocytes % (auto) 38.9 % (10.0-50.0); Mean Corpuscular Hemoglobin 29.1 pg (28.0-32.0); Mean Corpuscular Hgb Conc. 33.8 g/dL (32.0-36.0); Mean Corpuscular Volume 86.1 fL (80.0-100.0); Monocytes # (auto) 0.4 10 ^3/uL (0-1.3); Monocytes % (auto) 4.3 % (0.0-12.0); Neutrophils # (auto) 4.4 10 ^3/uL (1.6-8.6); Neutrophils % (auto) 52.8 % (37.0-80.0); Red Blood Cells 4.51 10^6/uL (4.0-5.20); Red Cell Distribution Width 14.3 % (11.8-14.3); Urine Bacteria FEW /hpf (None Seen); Urine Blood Negative /uL (Negative); Urine Specific Gravity 1.017 (1.001-1.035); Urine WBC 125 /hpf (0 - 5); White Blood Cell 8.4 10^3/uL (4.4-10.8)
[2020-12-20 09:16] LABS: Potassium 4.1 mmol/L (3.5-5.1)
[2020-12-20 09:22] LABS: Albumin 3.2 g/dL (3.4-5.0); BUN/Creatinine Ratio 17.6; Calcium 8.8 mg/dL (8.5-10.1)
[2020-12-20] MEDS ORDERED: CIPROFLOXACIN 400MG/200ML 200 ML IV ONE (09:30)
[2020-12-20 09:32] LABS: Bilirubin, Total 0.2 mg/dL (0.2-1.0); Total Protein 8.3 g/dL (6.4-8.2)
[2020-12-20] MEDS ORDERED: SODIUM CHLORIDE 0.9% 1,000 ML IV ONE (09:45)
[2020-12-20] MEDS ORDERED: PROMETHAZINE HCL 25 MG/ML 1ML IV ONE (12:00)
== END 2020-12-20 12:58 | disposition home or self-care (01) ==
LOC: ER 01:46
DX: N39.0 Urinary tract infection, site not specified (principal); K52.9 Noninfective gastroenteritis and colitis, unspecified; J45.909 Unspecified asthma, uncomplicated; E11.9 Type 2 diabetes mellitus without complications; Z90.49 Acquired absence of other specified parts of digestive tract; Z88.0 Allergy status to penicillin; Z88.1 Allergy status to other antibiotic agents; Z88.6 Allergy status to analgesic agent; Z88.5 Allergy status to narcotic agent
CPT/HCPCS: 36415; 74176; 80053; 81001; 85025; 85049; 87086; 87088; 87186; 96365; 96375; 96376; 99284; J0744; J2270; J2405; J2550; J7030; 51702

== ENCOUNTER 2021-07-04 00:31 | Emergency (ER) | payer MEDICAID ==
[~2021-07-04] VITALS: Ht 170.2 cm; Wt 124.7 kg
[2021-07-04 07:05] LABS: Urine Bacteria MANY /hpf (None Seen); Urine Blood Negative /uL (Negative); Urine Specific Gravity 1.013 (1.001-1.035); Urine WBC 101 /hpf (0 - 5)
[2021-07-04] MEDS ORDERED: CIPR-173 PO (08:23)
[2021-07-04] MEDS ORDERED: cefTRIAXone W LIDOCAINE 1 GM IM IM ONE (08:30)
[2021-07-04] MEDS ORDERED: LIDOCAINE 2% (LOCAL ANESTH.) PF 5ml SDV ONE (08:56)
[2021-07-04] MEDS ORDERED: cefTRIAXone SOD 1,000 MG VL ONE (08:56)
[2021-07-04] MEDS ORDERED: ACETAMINOPHEN 325 MG TAB PO ONE (09:00)
[2021-07-04 09:12] VITALS: BP 127/83
== END 2021-07-04 09:12 | disposition home or self-care (01) ==
LOC: ER 00:31
DX: N39.0 Urinary tract infection, site not specified (principal); E11.9 Type 2 diabetes mellitus without complications; J45.909 Unspecified asthma, uncomplicated; Z90.49 Acquired absence of other specified parts of digestive tract; Z88.0 Allergy status to penicillin; Z88.1 Allergy status to other antibiotic agents; Z88.5 Allergy status to narcotic agent; Z88.6 Allergy status to analgesic agent; Z88.8 Allergy status to other drugs, medicaments and biological substances
CPT/HCPCS: 81001; 87086; 99283; J0696; J2001

== ENCOUNTER 2021-08-03 21:08 | Emergency (ER) | payer MEDICAID ==
[~2021-08-03] VITALS: Ht 170.2 cm; Wt 124.7 kg
[2021-08-03 22:40] LABS: Urine Bacteria MOD /hpf (None Seen); Urine Blood Negative /uL (Negative); Urine Mucus FEW (None Seen); Urine Specific Gravity 1.013 (1.001-1.035); Urine WBC 51 /hpf (0 - 5); Urine WBC Clumps PRESENT /hpf (None Seen)
[2021-08-04] MEDS ORDERED: ACETAMINOPHEN 325 MG TAB PO ONE (02:45)
[2021-08-04] MEDS ORDERED: cefTRIAXone SOD 1,000 MG VL IM ONE (02:45)
[2021-08-04 03:56] VITALS: BP 132/87
== END 2021-08-04 03:59 | disposition home or self-care (01) ==
LOC: ER 21:08
DX: N39.0 Urinary tract infection, site not specified (principal); J45.909 Unspecified asthma, uncomplicated; E11.9 Type 2 diabetes mellitus without complications; Z88.0 Allergy status to penicillin; Z88.1 Allergy status to other antibiotic agents; Z90.49 Acquired absence of other specified parts of digestive tract; Z88.8 Allergy status to other drugs, medicaments and biological substances
CPT/HCPCS: 81001; 96372; 99283; J0696

== ENCOUNTER 2021-08-12 00:25 | Emergency (ER) | payer MEDICAID ==
[~2021-08-12] VITALS: Ht 170.2 cm; Wt 124.7 kg
[2021-08-12 01:34] LABS: Albumin 3.5 g/dL (3.4-5.0); Calcium 8.8 mg/dL (8.5-10.1); Potassium 3.8 mmol/L (3.5-5.1)
[2021-08-12 01:40] LABS: BUN/Creatinine Ratio 24.6; Bilirubin, Total 0.4 mg/dL (0.2-1.0)
[2021-08-12 01:55] LABS: Basophils # (auto) 0.1 10 ^3/uL (0-0.2); Basophils % (auto) 0.6 % (0.0-2.0); Eosinophils # (auto) 0.2 10 ^3/uL (0-0.8); Eosinophils % (auto) 2.1 % (0.0-7.0); Hematocrit 37.8 % (36.0-46.0); Hemoglobin 12.9 g/dL (12.2-16.2); Lymphocytes # (auto) 2.7 10 ^3/uL (0.4-5.4); Lymphocytes % (auto) 33.6 % (10.0-50.0); Mean Corpuscular Hemoglobin 29.9 pg (28.0-32.0); Mean Corpuscular Volume 87.9 fL (80.0-100.0); Monocytes # (auto) 0.5 10 ^3/uL (0-1.3); Monocytes % (auto) 6.4 % (0.0-12.0); Neutrophils # (auto) 4.6 10 ^3/uL (1.6-8.6); Neutrophils % (auto) 57.3 % (37.0-80.0); Red Cell Distribution Width 13.8 % (11.8-14.3); White Blood Cell 8.1 10^3/uL (4.4-10.8)
[2021-08-12 07:02] LABS: Urine Bacteria MOD /hpf (None Seen); Urine Blood Negative /uL (Negative); Urine Mucus FEW (None Seen); Urine Specific Gravity 1.014 (1.001-1.035); Urine WBC 38 /hpf (0 - 5)
[2021-08-12 07:11] LABS: Amphetamine Screen, Urine NEGATIVE (NEGATIVE); Barbiturate Scree,Urine NEGATIVE (NEGATIVE); Benzodiazephine Screen, Urine NEGATIVE (NEGATIVE); Cannabinoid Screen, Urine NEGATIVE (NEGATIVE); Cocaine Screen, Urine NEGATIVE (NEGATIVE)
[2021-08-12 07:13] LABS: Opiate Scree,Urine NEGATIVE (NEGATIVE); Phencyclidine Screen, Urine NEGATIVE (NEGATIVE)
[2021-08-12] MEDS ORDERED: cefTRIAXone 1GM/50ML D5W 50 ML IV ONE (07:30)
[2021-08-12] MEDS ORDERED: SODIUM CHLORIDE 0.9% 500 ML IV ONE (08:00)
[2021-08-12] MEDS ORDERED: ONDANSETRON HCL 4 MG/2 ML VIAL IV ONE (08:00)
[2021-08-12] MEDS ORDERED: MORPHINE SULFATE 4 MG/ML SYR/VIAL IV ONE (08:00)
[2021-08-12] MEDS ORDERED: diphenhdrAMINE HCL 50 MG/1 ML VL IV ONE (09:15)
[2021-08-12] MEDS ORDERED: SULF400T11 PO (09:35)
[2021-08-12 10:20] VITALS: BP 113/67
== END 2021-08-12 10:41 | disposition home or self-care (01) ==
LOC: ER 00:35
DX: N39.0 Urinary tract infection, site not specified (principal); J45.909 Unspecified asthma, uncomplicated; E11.9 Type 2 diabetes mellitus without complications; Z90.49 Acquired absence of other specified parts of digestive tract; Z88.0 Allergy status to penicillin; Z88.6 Allergy status to analgesic agent; Z88.5 Allergy status to narcotic agent; Z88.8 Allergy status to other drugs, medicaments and biological substances
CPT/HCPCS: 36415; 71045; 80053; 80307; 81001; 84484; 85025; 87086; 96365; 96375; 99285; J0696; J1200; J2270; J2405; J7040

== ENCOUNTER 2021-09-29 23:02 | Emergency (ER) | payer MEDICAID ==
[~2021-09-29] VITALS: Ht 170.2 cm; Wt 127.0 kg
[2021-09-29 23:02] VITALS: BP 117/84
[~2021-09-29 23:02] MED LIST changes: +SULF400T11 PO
[2021-09-30 00:12] LABS: Urine Bacteria MOD /hpf (None Seen); Urine Blood TRACE /uL (Negative); Urine Specific Gravity 1.015 (1.001-1.035); Urine WBC 55 /hpf (0 - 5)
[2021-09-30 00:21] LABS: Albumin 3.3 g/dL (3.4-5.0); Anion Gap 9 (5-15); BUN/Creatinine Ratio 16.7; Blood Urea Nitrogen 12 mg/dL (7-18); Calcium 8.6 mg/dL (8.5-10.1); Carbon Dioxide 21 mmol/L (21-32); Chloride 110 mmol/L (98-107); GFR African American 117 mL/min; GFR Non-African American 96 mL/min; Glucose 88 mg/dL (74-106); Potassium 3.9 mmol/L (3.5-5.1); Sodium 140 mmol/L (136-145)
[2021-09-30 00:24] LABS: Alanine Aminotransferase 15 U/L (13-56); Alkaline Phosphatase 72 U/L (45-117); Aspartate Aminotransferase 12 U/L (15-37); Bilirubin, Total 0.2 mg/dL (0.2-1.0); Total Protein 7.7 g/dL (6.4-8.2)
[2021-09-30 00:29] LABS: Basophils # (auto) 0.1 10 ^3/uL (0-0.2); Basophils % (auto) 1.2 % (0.0-2.0); Eosinophils # (auto) 0.2 10 ^3/uL (0-0.8); Eosinophils % (auto) 2.2 % (0.0-7.0); Hematocrit 37.5 % (36.0-46.0); Hemoglobin 12.7 g/dL (12.2-16.2); Lymphocytes # (auto) 2.8 10 ^3/uL (0.4-5.4); Lymphocytes % (auto) 32.6 % (10.0-50.0); Mean Corpuscular Hemoglobin 29.7 pg (28.0-32.0); Mean Corpuscular Hgb Conc. 33.8 g/dL (32.0-36.0); Mean Corpuscular Volume 87.7 fL (80.0-100.0); Monocytes # (auto) 0.4 10 ^3/uL (0-1.3); Monocytes % (auto) 4.6 % (0.0-12.0); Neutrophils # (auto) 5.2 10 ^3/uL (1.6-8.6); Neutrophils % (auto) 59.4 % (37.0-80.0); Nucleated Red Blood Cells % 0.4 %; Red Blood Cells 4.28 10^6/uL (4.0-5.20); Red Cell Distribution Width 13.4 % (11.8-14.3); White Blood Cell 8.7 10^3/uL (4.4-10.8)
[2021-09-30] MEDS ORDERED: PERCOT PO (04:37)
[2021-09-30] MEDS ORDERED: LEVO500T31 PO (04:37)
[2021-09-30] MEDS ORDERED: levoFLOXacin 500 MG TAB PO ONE (04:45)
== END 2021-09-30 05:04 | disposition left against medical advice (07) ==
LOC: ER 23:02
DX: N39.0 Urinary tract infection, site not specified (principal); J45.909 Unspecified asthma, uncomplicated; E11.9 Type 2 diabetes mellitus without complications; Z90.49 Acquired absence of other specified parts of digestive tract; Z88.0 Allergy status to penicillin; Z88.1 Allergy status to other antibiotic agents; Z88.8 Allergy status to other drugs, medicaments and biological substances
CPT/HCPCS: 36415; 74176; 80053; 81001; 85025

== ENCOUNTER 2021-10-09 22:24 | Inpatient (IN) | payer MEDICAID ==
[~2021-10-09] VITALS: Ht 170.2 cm; Wt 130.1 kg
[~2021-10-09 22:24] MED LIST changes: +LEVO500T31 PO; +PERCOT PO
[2021-10-09 23:14] LABS: Basophils # (auto) 0.1 10 ^3/uL (0-0.2); Basophils % (auto) 0.7 % (0.0-2.0); Eosinophils # (auto) 0.1 10 ^3/uL (0-0.8); Eosinophils % (auto) 1.3 % (0.0-7.0); Hematocrit 36.7 % (36.0-46.0); Hemoglobin 12.4 g/dL (12.2-16.2); Lymphocytes # (auto) 1.5 10 ^3/uL (0.4-5.4); Mean Corpuscular Hemoglobin 29.9 pg (28.0-32.0); Mean Corpuscular Hgb Conc. 33.7 g/dL (32.0-36.0); Mean Corpuscular Volume 88.6 fL (80.0-100.0); Monocytes # (auto) 0.6 10 ^3/uL (0-1.3); Monocytes % (auto) 8.3 % (0.0-12.0); Neutrophils # (auto) 5.2 10 ^3/uL (1.6-8.6); Neutrophils % (auto) 69.7 % (37.0-80.0); Nucleated Red Blood Cells % 0.1 %; Red Blood Cells 4.14 10^6/uL (4.0-5.20); Red Cell Distribution Width 13.7 % (11.8-14.3); White Blood Cell 7.4 10^3/uL (4.4-10.8)
[2021-10-09 23:29] LABS: Magnesium 1.9 mg/dL (1.6-2.6); Potassium 3.4 mmol/L (3.5-5.1)
[2021-10-09 23:36] LABS: BUN/Creatinine Ratio 14.1; Bilirubin, Total 0.3 mg/dL (0.2-1.0); Calcium 8.8 mg/dL (8.5-10.1); Total Protein 7.9 g/dL (6.4-8.2)
[2021-10-10 00:15] LABS: Urine Bacteria FEW /hpf (None Seen); Urine Blood TRACE /uL (Negative); Urine Specific Gravity 1.012 (1.001-1.035); Urine WBC 118 /hpf (0 - 5); Urine WBC Clumps PRESENT /hpf (None Seen)
[2021-10-10] MEDS ORDERED: ACETAMINOPHEN 500 MG TAB PO ONE (04:15)
[2021-10-10] MEDS ORDERED: cefTRIAXone W LIDOCAINE 1 GM IM IM ONE (04:15)
[2021-10-10] MEDS ORDERED: cefTRIAXone SOD 1,000 MG VL ONE (04:21)
[2021-10-10] MEDS ORDERED: LIDOCAINE 2%HCL (LOCAL ANESTH.) INJ 10ml MDV ONE (04:22)
[2021-10-10] MEDS ORDERED: SODIUM CHLORIDE 0.9% 1,000 ML IV ONE (10:00)
[2021-10-10] MEDS ORDERED: POTASSIUM EFFERVESENT TAB 25 MEQ PO ONE (10:00)
[2021-10-10] MEDS ORDERED: DOCUSATE SOD 100 MG CAP PO PRN (11:30)
[2021-10-10] MEDS ORDERED: HYDROmorphone HCL 2 MG/ML VL IV PRN ×2 (11:45)
[2021-10-10] MEDS ORDERED: ACETAMINOPHEN 325 MG TAB PO PRN (11:45)
[2021-10-10] MEDS ORDERED: HYDROmorphone HCL 2 MG/ML VL IV ONE (11:45)
[2021-10-10] MEDS: SODIUM CHLORIDE 0.9% 1,000 ML IV SCH ×2 (12:05→18:31)
[2021-10-10 13:03] LABS: Alcohol, Urine < 3.0 mg/dL (0-10); Amphetamine Screen, Urine NEGATIVE (NEGATIVE); Barbiturate Scree,Urine NEGATIVE (NEGATIVE); Benzodiazephine Screen, Urine NEGATIVE (NEGATIVE); Cannabinoid Screen, Urine NEGATIVE (NEGATIVE); Cocaine Screen, Urine NEGATIVE (NEGATIVE); Opiate Scree,Urine NEGATIVE (NEGATIVE); Phencyclidine Screen, Urine NEGATIVE (NEGATIVE)
[2021-10-10] MEDS: CIPROFLOXACIN 400MG/200ML 200 ML IV SCH ×2 (14:24→22:15)
[2021-10-10 15:32] VITALS: BP 115/70
[2021-10-10] MEDS: HYDROmorphone HCL 2 MG/ML VL IV PRN ×2 (17:39→22:16)
[2021-10-10] MEDS ORDERED: METOCLOPRAMIDE HCL 5MG/ml INJ 2ml VIAL IV ONE (18:15)
[2021-10-10] MEDS ORDERED: diphenhdrAMINE HCL 50 MG/1 ML VL IV ONE (18:15)
[2021-10-10] MEDS ORDERED: DexAMETHasone SOD PHOS 10MG/1ML VIAL INJ IV ONE (18:15)
[2021-10-10 21:33] VITALS: BP 111/73
[2021-10-11] MEDS: HYDROmorphone HCL 2 MG/ML VL IV PRN ×5 (02:29→21:10)
[2021-10-11] MEDS: SODIUM CHLORIDE 0.9% 1,000 ML IV SCH ×3 (04:21→21:11)
[2021-10-11 05:27] VITALS: BP 104/53
[2021-10-11] MEDS: CIPROFLOXACIN 400MG/200ML 200 ML IV SCH ×3 (06:12→21:11)
[2021-10-11 08:00] VITALS: BP_SYST 101; BP_SYST 110; BP_DIAS 54; BP_DIAS 66
[2021-10-11] MEDS: ENOXAPARIN SOD 40 MG/0.4 ML SYRINGE SC SCH (09:30)
[2021-10-11 12:00] VITALS: BP 101/54
[2021-10-11 12:28] LABS: BUN/Creatinine Ratio 12.3; Calcium 8.7 mg/dL (8.5-10.1)
[2021-10-11 16:00] VITALS: BP 102/71
[2021-10-11 22:00] VITALS: BP 115/67
[2021-10-12] MEDS: HYDROmorphone HCL 2 MG/ML VL IV PRN ×7 (00:16→22:31)
[2021-10-12] MEDS: SODIUM CHLORIDE 0.9% 1,000 ML IV SCH (03:30)
[2021-10-12 05:20] LABS: Basophils # (auto) 0 10 ^3/uL (0-0.2); Basophils % (auto) 0.4 % (0.0-2.0); Eosinophils # (auto) 0.2 10 ^3/uL (0-0.8); Eosinophils % (auto) 4.1 % (0.0-7.0); Hematocrit 32.3 % (36.0-46.0); Lymphocytes # (auto) 2.4 10 ^3/uL (0.4-5.4); Lymphocytes % (auto) 45.2 % (10.0-50.0); Mean Corpuscular Hemoglobin 30.2 pg (28.0-32.0); Mean Corpuscular Hgb Conc. 34.1 g/dL (32.0-36.0); Mean Corpuscular Volume 88.7 fL (80.0-100.0); Monocytes # (auto) 0.4 10 ^3/uL (0-1.3); Monocytes % (auto) 7.3 % (0.0-12.0); Neutrophils # (auto) 2.3 10 ^3/uL (1.6-8.6); Nucleated Red Blood Cells % 0.2 %; Red Blood Cells 3.64 10^6/uL (4.0-5.20); Red Cell Distribution Width 13.5 % (11.8-14.3); White Blood Cell 5.4 10^3/uL (4.4-10.8)
[2021-10-12 05:46] LABS: BUN/Creatinine Ratio 13.8; Calcium 8.1 mg/dL (8.5-10.1); Potassium 4.3 mmol/L (3.5-5.1)
[2021-10-12] MEDS: CIPROFLOXACIN 400MG/200ML 200 ML IV SCH ×3 (06:24→22:31)
[2021-10-12 08:00] VITALS: BP 103/63
[2021-10-12] MEDS: ENOXAPARIN SOD 40 MG/0.4 ML SYRINGE SC SCH (09:45)
[2021-10-12 12:00] VITALS: BP 103/65
[2021-10-12 16:00] VITALS: BP 125/89
[2021-10-12 22:00] VITALS: BP 120/76
[2021-10-13] MEDS: HYDROmorphone HCL 2 MG/ML VL IV PRN ×4 (02:34→13:34)
[2021-10-13 05:00] VITALS: BP 127/78
[2021-10-13] MEDS: CIPROFLOXACIN 400MG/200ML 200 ML IV SCH ×2 (05:40→13:33)
[2021-10-13 06:11] LABS: Basophils # (auto) 0 10 ^3/uL (0-0.2); Basophils % (auto) 0.4 % (0.0-2.0); Eosinophils # (auto) 0.3 10 ^3/uL (0-0.8); Eosinophils % (auto) 4.5 % (0.0-7.0); Hematocrit 33.1 % (36.0-46.0); Hemoglobin 11.4 g/dL (12.2-16.2); Lymphocytes # (auto) 2.5 10 ^3/uL (0.4-5.4); Lymphocytes % (auto) 40.9 % (10.0-50.0); Mean Corpuscular Hemoglobin 30.4 pg (28.0-32.0); Mean Corpuscular Hgb Conc. 34.4 g/dL (32.0-36.0); Mean Corpuscular Volume 88.3 fL (80.0-100.0); Monocytes # (auto) 0.3 10 ^3/uL (0-1.3); Monocytes % (auto) 4.9 % (0.0-12.0); Neutrophils % (auto) 49.3 % (37.0-80.0); Nucleated Red Blood Cells % 0.1 %; Red Blood Cells 3.75 10^6/uL (4.0-5.20); Red Cell Distribution Width 13.4 % (11.8-14.3); White Blood Cell 6.1 10^3/uL (4.4-10.8)
[2021-10-13 06:52] LABS: Potassium 3.9 mmol/L (3.5-5.1)
[2021-10-13 07:04] LABS: BUN/Creatinine Ratio 10.6
[2021-10-13] MEDS: ENOXAPARIN SOD 40 MG/0.4 ML SYRINGE SC SCH (09:17)
[2021-10-13] MEDS ORDERED: CIPR-173 PO (10:28)
[2021-10-13 12:00] VITALS: BP 140/63
[2021-10-13 15:30] VITALS: BP 140/63
== END 2021-10-13 16:50 | disposition home or self-care (01) | DRG 463 ==
LOC: ER 22:24 → WEST WING 10-10 11:34 → ER 10-10 14:33 → WEST WING 10-10 14:45
PROVIDERS: ADMIT Registered Nurse; ATTEND Internal Medicine Pulmonary Disease
DX: N10 Acute pyelonephritis (principal); N17.9 Acute kidney failure, unspecified; E11.9 Type 2 diabetes mellitus without complications; J45.909 Unspecified asthma, uncomplicated; E66.01 Morbid (severe) obesity due to excess calories; Z20.822 Contact with and (suspected) exposure to COVID-19; Z98.84 Bariatric surgery status; Z88.5 Allergy status to narcotic agent; Z88.8 Allergy status to other drugs, medicaments and biological substances; Z82.49 Family history of ischemic heart disease and other diseases of the circulatory system; Z82.5 Family history of asthma and other chronic lower respiratory diseases; Z83.3 Family history of diabetes mellitus; Z90.49 Acquired absence of other specified parts of digestive tract; Z68.42 Body mass index [BMI] 45.0-49.9, adult
CPT/HCPCS: 36415; 74176; 80048; 80053; 80307; 81001; 81025; 82150; 83690; 83735; 84702; 85025; 87040; 87086; 96361; 96372; 96374; 96375; G0378; J0696; J1100; J2001

== ENCOUNTER 2021-12-31 21:24 | Inpatient (IN) | payer MEDICAID ==
[~2021-12-31] VITALS: Ht 170.2 cm; Wt 128.4 kg
[~2021-12-31 21:24] MED LIST changes: -LEVO500T31 PO; -SULF400T11 PO
[2021-12-31] MEDS ORDERED: SODIUM CHLORIDE 0.9% 1,000 ML IV ONE (22:00)
[2021-12-31 23:07] LABS: Albumin 3.1 g/dL (3.4-5.0); Calcium 8.6 mg/dL (8.5-10.1); Potassium 3.4 mmol/L (3.5-5.1)
[2021-12-31 23:13] LABS: Urine Bacteria MOD /hpf (None Seen); Urine Blood Negative /uL (Negative); Urine Mucus FEW (None Seen); Urine Specific Gravity 1.014 (1.001-1.035); Urine WBC 56 /hpf (0 - 5)
[2021-12-31 23:13] LABS: Bilirubin, Total 0.3 mg/dL (0.2-1.0); CRP High Sensitivity 2.7 mg/dL (< 0.3); Total Protein 7.9 g/dL (6.4-8.2)
[2021-12-31] MEDS ORDERED: levoFLOXacin 750MG 150 ML IV ONE (23:15)
[2021-12-31 23:21] LABS: Basophils # (auto) 0 10 ^3/uL (0-0.2); Basophils % (auto) 0.7 % (0.0-2.0); Eosinophils # (auto) 0.1 10 ^3/uL (0-0.8); Eosinophils % (auto) 1.2 % (0.0-7.0); Hematocrit 37.8 % (36.0-46.0); Hemoglobin 12.5 g/dL (12.2-16.2); Lymphocytes # (auto) 1.3 10 ^3/uL (0.4-5.4); Lymphocytes % (auto) 23.5 % (10.0-50.0); Mean Corpuscular Hemoglobin 28.9 pg (28.0-32.0); Mean Corpuscular Hgb Conc. 33.1 g/dL (32.0-36.0); Mean Corpuscular Volume 87.2 fL (80.0-100.0); Monocytes # (auto) 0.4 10 ^3/uL (0-1.3); Neutrophils # (auto) 3.7 10 ^3/uL (1.6-8.6); Neutrophils % (auto) 67.6 % (37.0-80.0); Nucleated Red Blood Cells % 0.1 %; Red Blood Cells 4.34 10^6/uL (4.0-5.20); Red Cell Distribution Width 13.9 % (11.8-14.3); White Blood Cell 5.5 10^3/uL (4.4-10.8)
[2022-01-01] MEDS ORDERED: fentaNYL CITRATE 100 MCG/2 ML VL IV ONE (06:45)
[2022-01-01] MEDS: SODIUM CHLORIDE 0.9% 1,000 ML IV SCH (13:45)
[2022-01-01] MEDS ORDERED: MORPHINE SULFATE INJ 2 MG/ml SYRG IV PRN (13:45)
[2022-01-01] MEDS ORDERED: HYDROcodone-ACET 5/325MG TAB PO PRN (13:45)
[2022-01-01] MEDS ORDERED: DOCUSATE SOD 100 MG CAP PO PRN (13:45)
[2022-01-01] MEDS ORDERED: ACETAMINOPHEN 325 MG TAB PO PRN (13:45)
[2022-01-01] MEDS: SODIUM CHLOR 0.9% PF (SALINE LOCK) 10ML VIAL/SYR IV SCH (14:30)
[2022-01-01] MEDS: MORPHINE SULFATE INJ 2 MG/ml SYRG IV PRN ×2 (16:29→21:39)
[2022-01-01] MEDS: ONDANSETRON HCL 4 MG/2 ML VIAL IV PRN ×2 (16:30→21:40)
[2022-01-01 21:59] VITALS: BP 120/66
[2022-01-02] MEDS: SODIUM CHLOR 0.9% PF (SALINE LOCK) 10ML VIAL/SYR IV SCH ×4 (02:22→21:21)
[2022-01-02] MEDS: MORPHINE SULFATE INJ 2 MG/ml SYRG IV PRN ×4 (02:58→18:38)
[2022-01-02 04:45] VITALS: BP 88/53
[2022-01-02] MEDS: SODIUM CHLORIDE 0.9% 1,000 ML IV SCH ×3 (06:25→18:05)
[2022-01-02] MEDS: diphenhdrAMINE HCL 50 MG/1 ML VL IM SCH (08:36)
[2022-01-02 09:00] VITALS: BP 81/56
[2022-01-02] MEDS ORDERED: SODIUM CHLORIDE 0.9% 3,750 ML IV ONE (09:45)
[2022-01-02] MEDS: cefTRIAXone 1GM/50ML D5W 50 ML IV SCH (10:00)
[2022-01-02] MEDS ORDERED: POTASSIUM EFFERVESENT TAB 25 MEQ PO ONE (11:45)
[2022-01-02 13:00] VITALS: BP 94/55
[2022-01-02] MEDS ORDERED: NALBUPHINE HCL 10 MG/1ml INJECTION IV PRN (13:00)
[2022-01-02 17:00] VITALS: BP 91/54
[2022-01-02 22:00] VITALS: BP 90/57
[2022-01-03] MEDS: MORPHINE SULFATE INJ 2 MG/ml SYRG IV PRN ×3 (00:15→10:55)
[2022-01-03] MEDS: SODIUM CHLORIDE 0.9% 1,000 ML IV SCH ×2 (00:19→07:00)
[2022-01-03 05:00] VITALS: BP 109/67
[2022-01-03] MEDS: SODIUM CHLOR 0.9% PF (SALINE LOCK) 10ML VIAL/SYR IV SCH (05:43)
[2022-01-03 08:52] VITALS: BP 104/70
[2022-01-03] MEDS: diphenhdrAMINE HCL 50 MG/1 ML VL IM SCH (09:23)
[2022-01-03] MEDS: cefTRIAXone 1GM/50ML D5W 50 ML IV SCH (10:28)
[2022-01-03 13:00] VITALS: BP 102/66
[2022-01-03] MEDS ORDERED: SODIUM CHLORIDE 0.9% 1,000 ML IV SCH (13:00)
[2022-01-03] MEDS ORDERED: CEFU500T43 PO (13:11)
== END 2022-01-03 17:20 | disposition home or self-care (01) | DRG 463 ==
LOC: ER 21:24 → OVERFLOW 01-01 13:43 → WEST WING 01-01 18:39
PROVIDERS: ADMIT Internal Medicine; ATTEND Internal Medicine
DX: N10 Acute pyelonephritis (principal); I95.9 Hypotension, unspecified; D64.9 Anemia, unspecified; E11.9 Type 2 diabetes mellitus without complications; E66.01 Morbid (severe) obesity due to excess calories; E03.9 Hypothyroidism, unspecified; E87.6 Hypokalemia; J45.909 Unspecified asthma, uncomplicated; Z20.822 Contact with and (suspected) exposure to COVID-19; F11.20 Opioid dependence, uncomplicated; Q05.9 Spina bifida, unspecified; Z87.440 Personal history of urinary (tract) infections; Z80.0 Family history of malignant neoplasm of digestive organs; Z82.5 Family history of asthma and other chronic lower respiratory diseases; Z82.49 Family history of ischemic heart disease and other diseases of the circulatory system; Z83.3 Family history of diabetes mellitus; Z90.49 Acquired absence of other specified parts of digestive tract; Z88.5 Allergy status to narcotic agent; Z88.8 Allergy status to other drugs, medicaments and biological substances; Z88.1 Allergy status to other antibiotic agents; Z91.040 Latex allergy status; Z68.41 Body mass index [BMI] 40.0-44.9, adult; Z79.84 Long term (current) use of oral hypoglycemic drugs
CPT/HCPCS: 36415; 71045; 74177; 80053; 81001; 83605; 84702; 85025; 86141; 87040; 87077; 87086; 87186; 96365; 96375; G0378; J0696; J1956; J2405

== ENCOUNTER 2022-03-14 21:36 | Emergency (ER) | payer MEDICAID ==
[~2022-03-14] VITALS: Ht 170.2 cm; Wt 125.0 kg
[~2022-03-14 21:36] MED LIST changes: +CEFU500T43 PO
[2022-03-14] MEDS ORDERED: SODIUM CHLORIDE 0.9% 1,000 ML IV ONE (23:00)
[2022-03-14] MEDS ORDERED: cefTRIAXone 1GM/50ML D5W 50 ML IV ONE (23:00)
[2022-03-14 23:59] LABS: Basophils # (auto) 0.1 10 ^3/uL (0-0.2); Basophils % (auto) 0.8 % (0.0-2.0); Eosinophils # (auto) 0.2 10 ^3/uL (0-0.8); Eosinophils % (auto) 3.1 % (0.0-7.0); Hematocrit 38.2 % (36.0-46.0); Hemoglobin 12.6 g/dL (12.2-16.2); Lymphocytes # (auto) 2.3 10 ^3/uL (0.4-5.4); Lymphocytes % (auto) 33.5 % (10.0-50.0); Mean Corpuscular Hemoglobin 29.2 pg (28.0-32.0); Mean Corpuscular Volume 88.7 fL (80.0-100.0); Monocytes # (auto) 0.3 10 ^3/uL (0-1.3); Neutrophils % (auto) 57.6 % (37.0-80.0); Red Blood Cells 4.31 10^6/uL (4.0-5.20); Red Cell Distribution Width 14.1 % (11.8-14.3)
[2022-03-15 00:19] LABS: Albumin 3.2 g/dL (3.4-5.0); BUN/Creatinine Ratio 22.1; Calcium 8.5 mg/dL (8.5-10.1); Potassium 3.8 mmol/L (3.5-5.1)
[2022-03-15 00:22] LABS: Bilirubin, Total 0.2 mg/dL (0.2-1.0); Total Protein 7.9 g/dL (6.4-8.2)
[2022-03-15 03:36] LABS: Urine Bacteria FEW /hpf (None Seen); Urine Blood 2+ /uL (Negative); Urine Specific Gravity 1.016 (1.001-1.035); Urine WBC 59 /hpf (0 - 5); Urine WBC Clumps PRESENT /hpf (None Seen)
[2022-03-15] MEDS ORDERED: ACETAMINOPHEN 325 MG TAB PO ONE (04:00)
[2022-03-15] MEDS ORDERED: CIPR-173 PO (04:55)
[2022-03-15 05:30] VITALS: BP 126/75
== END 2022-03-15 05:05 | disposition home or self-care (01) ==
LOC: ER 21:38
DX: N39.0 Urinary tract infection, site not specified (principal); J45.909 Unspecified asthma, uncomplicated; E11.9 Type 2 diabetes mellitus without complications; Z88.2 Allergy status to sulfonamides; Z88.6 Allergy status to analgesic agent; Z88.8 Allergy status to other drugs, medicaments and biological substances; Z90.49 Acquired absence of other specified parts of digestive tract
CPT/HCPCS: 36415; 80053; 81001; 81025; 85025; 96365; 99284; J0696; J7030

== ENCOUNTER 2022-03-21 23:25 | Inpatient (IN) | payer MEDICAID ==
[~2022-03-21] VITALS: Ht 170.2 cm; Wt 133.1 kg
[2022-03-22 01:43] LABS: Basophils # (auto) 0.1 10 ^3/uL (0-0.2); Eosinophils # (auto) 0.3 10 ^3/uL (0-0.8); Eosinophils % (auto) 3.9 % (0.0-7.0); Hematocrit 37.1 % (36.0-46.0); Hemoglobin 12.3 g/dL (12.2-16.2); Lymphocytes # (auto) 2.9 10 ^3/uL (0.4-5.4); Lymphocytes % (auto) 40.5 % (10.0-50.0); Mean Corpuscular Hemoglobin 29.3 pg (28.0-32.0); Mean Corpuscular Hgb Conc. 33.2 g/dL (32.0-36.0); Mean Corpuscular Volume 88.1 fL (80.0-100.0); Monocytes # (auto) 0.5 10 ^3/uL (0-1.3); Monocytes % (auto) 6.4 % (0.0-12.0); Neutrophils # (auto) 3.4 10 ^3/uL (1.6-8.6); Neutrophils % (auto) 48.2 % (37.0-80.0); Nucleated Red Blood Cells % 0.1 %; Red Blood Cells 4.21 10^6/uL (4.0-5.20); Red Cell Distribution Width 13.9 % (11.8-14.3); White Blood Cell 7.1 10^3/uL (4.4-10.8)
[2022-03-22 02:05] LABS: Calcium 8.4 mg/dL (8.5-10.1); Potassium 3.8 mmol/L (3.5-5.1)
[2022-03-22 02:08] LABS: Albumin 3.1 g/dL (3.4-5.0); BUN/Creatinine Ratio 18.1
[2022-03-22 02:14] LABS: Bilirubin, Total 0.2 mg/dL (0.2-1.0); Total Protein 7.6 g/dL (6.4-8.2)
[2022-03-22 02:30] LABS: Urine Bacteria FEW /hpf (None Seen); Urine Blood Negative /uL (Negative); Urine Mucus FEW (None Seen); Urine Specific Gravity 1.017 (1.001-1.035); Urine WBC 59 /hpf (0 - 5)
[2022-03-22] MEDS ORDERED: cefTRIAXone 1GM/50ML D5W 50 ML IV ONE (08:45)
[2022-03-22] MEDS ORDERED: DEXTROSE (50%) 50ML SYRG IV PRN (10:30)
[2022-03-22] MEDS: SODIUM CHLORIDE 0.9% 1,000 ML IV SCH (11:15)
[2022-03-22 11:34] LABS: Cholesterol 167 mg/dL (< 200)
[2022-03-22 11:36] LABS: HDL Cholesterol 49 mg/dL (40-59); LDL Cholesterol 100 mg/dL (< 100); Triglycerides 163 mg/dL (< 150)
[2022-03-22] MEDS: HYDROmorphone HCL 2 MG/ML VL/or syr IV PRN ×3 (12:38→23:32)
[2022-03-22] MEDS: ACCU-CHEK COMFORT CURVE STRIP VI SCH ×3 (12:40→22:33)
[2022-03-22] MEDS: InsuLIN REG 1unit/0.01ml Soln (100units/ml) SC SCH ×3 (12:40→22:00)
[2022-03-22] MEDS ORDERED: ALBUTEROL SULF 2.5 MG/0.5ML(0.5%) NEB SOLN NEB PRN (17:15)
[2022-03-22 17:16] VITALS: BP 118/75
[2022-03-22 22:55] VITALS: BP 122/73
[2022-03-23] MEDS: SODIUM CHLORIDE 0.9% 1,000 ML IV SCH ×4 (03:15→23:34)
[2022-03-23 04:34] VITALS: BP 103/60
[2022-03-23] MEDS: HYDROmorphone HCL 2 MG/ML VL/or syr IV PRN ×4 (05:15→23:42)
[2022-03-23] MEDS: InsuLIN REG 1unit/0.01ml Soln (100units/ml) SC SCH ×4 (07:00→22:00)
[2022-03-23] MEDS: ACCU-CHEK COMFORT CURVE STRIP VI SCH ×4 (07:22→22:09)
[2022-03-23 09:00] VITALS: BP 108/64
[2022-03-23] MEDS: cefTRIAXone 1GM/50ML D5W 50 ML IV SCH (09:00)
[2022-03-23] MEDS ORDERED: IOTHALAMATE MEGLUMINE INJ 250ML BOT UR ONE (09:12)
[2022-03-23] MEDS ORDERED: PNEUMOCOCCAL VACC POLYS 25 MCG/0.5 ML VIAL IM ONE (10:00)
[2022-03-23 13:00] VITALS: BP 123/82
[2022-03-23 17:00] VITALS: BP 108/64
[2022-03-23 22:00] VITALS: BP 137/81
[2022-03-24] MEDS: SODIUM CHLORIDE 0.9% 1,000 ML IV SCH ×2 (03:15→11:35)
[2022-03-24 04:54] VITALS: BP 112/71
[2022-03-24] MEDS: HYDROmorphone HCL 2 MG/ML VL/or syr IV PRN ×2 (05:30→11:33)
[2022-03-24] MEDS: InsuLIN REG 1unit/0.01ml Soln (100units/ml) SC SCH ×3 (06:41→17:00)
[2022-03-24] MEDS: ACCU-CHEK COMFORT CURVE STRIP VI SCH ×3 (06:41→17:00)
[2022-03-24] MEDS: cefTRIAXone 1GM/50ML D5W 50 ML IV SCH (08:59)
[2022-03-24 09:00] VITALS: BP 122/71
[2022-03-24 13:00] VITALS: BP 122/78
[2022-03-24] MEDS ORDERED: CIPR-173 PO (14:30)
[2022-03-24 17:00] VITALS: BP 128/77
== END 2022-03-24 17:42 | disposition home or self-care (01) | DRG 463 ==
LOC: ER 23:31 → OVERFLOW 03-22 10:10 → WEST WING 03-22 21:30
PROVIDERS: ADMIT Registered Nurse; ATTEND Internal Medicine Nephrology
PROC: 3E0234Z Introduction of Serum, Toxoid and Vaccine into Muscle, Percutaneous Approach (ICD-10-PCS; principal; 2022-03-24)
DX: N39.0 Urinary tract infection, site not specified (principal); E44.1 Mild protein-calorie malnutrition; E03.9 Hypothyroidism, unspecified; J45.909 Unspecified asthma, uncomplicated; G89.29 Other chronic pain; M54.50 Low back pain, unspecified; F41.9 Anxiety disorder, unspecified; F32.A Depression, unspecified; N31.9 Neuromuscular dysfunction of bladder, unspecified; E11.9 Type 2 diabetes mellitus without complications; Z20.822 Contact with and (suspected) exposure to COVID-19; I10 Essential (primary) hypertension; E66.01 Morbid (severe) obesity due to excess calories; Q05.9 Spina bifida, unspecified; Z68.42 Body mass index [BMI] 45.0-49.9, adult; Z80.0 Family history of malignant neoplasm of digestive organs; Z82.5 Family history of asthma and other chronic lower respiratory diseases; Z83.3 Family history of diabetes mellitus; Z87.440 Personal history of urinary (tract) infections; Z87.442 Personal history of urinary calculi; Z98.84 Bariatric surgery status; Z88.5 Allergy status to narcotic agent; Z88.8 Allergy status to other drugs, medicaments and biological substances; Z88.1 Allergy status to other antibiotic agents; Z91.040 Latex allergy status; Z90.49 Acquired absence of other specified parts of digestive tract; Z88.0 Allergy status to penicillin; Z23 Encounter for immunization
CPT/HCPCS: 36415; 74176; 74430; 80053; 80061; 81001; 81025; 82962; 84443; 85025; 87086; 94640; 96361; 96365; G0378; J0696

== ENCOUNTER 2022-06-24 00:09 | Inpatient (IN) | payer MEDICAID ==
[~2022-06-24] VITALS: Ht 170.2 cm; Wt 129.2 kg
[2022-06-24 02:58] LABS: Basophils # (auto) 0.1 10 ^3/uL (0-0.2); Basophils % (auto) 0.9 % (0.0-2.0); Eosinophils # (auto) 0.2 10 ^3/uL (0-0.8); Eosinophils % (auto) 2.8 % (0.0-7.0); Hematocrit 37.5 % (36.0-46.0); Hemoglobin 12.6 g/dL (12.2-16.2); Lymphocytes # (auto) 2.4 10 ^3/uL (0.4-5.4); Lymphocytes % (auto) 39.2 % (10.0-50.0); Mean Corpuscular Hemoglobin 29.4 pg (28.0-32.0); Mean Corpuscular Hgb Conc. 33.6 g/dL (32.0-36.0); Mean Corpuscular Volume 87.3 fL (80.0-100.0); Monocytes # (auto) 0.3 10 ^3/uL (0-1.3); Monocytes % (auto) 4.8 % (0.0-12.0); Neutrophils # (auto) 3.2 10 ^3/uL (1.6-8.6); Neutrophils % (auto) 52.3 % (37.0-80.0); Nucleated Red Blood Cells % 0.1 %; Red Cell Distribution Width 13.8 % (11.8-14.3); White Blood Cell 6.1 10^3/uL (4.4-10.8)
[2022-06-24 03:14] LABS: Albumin 3.3 g/dL (3.4-5.0); BUN/Creatinine Ratio 13.9; Calcium 8.8 mg/dL (8.5-10.1); Potassium 3.7 mmol/L (3.5-5.1)
[2022-06-24 03:16] LABS: Bilirubin, Total 0.2 mg/dL (0.2-1.0); Total Protein 7.9 g/dL (6.4-8.2)
[2022-06-24 03:20] LABS: Urine Bacteria FEW /hpf (None Seen); Urine Blood Negative /uL (Negative); Urine Specific Gravity 1.014 (1.001-1.035); Urine WBC 34 /hpf (0 - 5); Urine WBC Clumps PRESENT /hpf (None Seen)
[2022-06-24] MEDS ORDERED: cefTRIAXone 1GM/50ML D5W 50 ML IV ONE (04:15)
[2022-06-24] MEDS ORDERED: MAALOX PLUS or MAALOX 30 ML PO PRN (04:45)
[2022-06-24] MEDS ORDERED: ALBUTEROL SULF 2.5 MG/0.5ML(0.5%) NEB SOLN NEB PRN (04:45)
[2022-06-24] MEDS ORDERED: ONDANSETRON HCL 4 MG/2 ML VIAL IV PRN (04:45)
[2022-06-24] MEDS ORDERED: TEMAZEPAM 15 MG CAP PO PRN (04:45)
[2022-06-24] MEDS ORDERED: ACETAMINOPHEN 325 MG TAB PO PRN (04:45)
[2022-06-24] MEDS ORDERED: LORazepam 0.5 MG TAB PO PRN (04:45)
[2022-06-24] MEDS ORDERED: MORPHINE SULFATE 4 MG/ML SYR/VIAL IV ONE (06:00)
[2022-06-24] MEDS: SODIUM CHLORIDE 0.9% 1,000 ML IV SCH ×2 (06:21→21:59)
[2022-06-24 07:32] LABS: BUN/Creatinine Ratio 14.5; Calcium 8.4 mg/dL (8.5-10.1); Potassium 3.9 mmol/L (3.5-5.1)
[2022-06-24 07:38] LABS: Basophils # (auto) 0 10 ^3/uL (0-0.2); Basophils % (auto) 0.6 % (0.0-2.0); Eosinophils # (auto) 0.2 10 ^3/uL (0-0.8); Eosinophils % (auto) 3.2 % (0.0-7.0); Hematocrit 35.8 % (36.0-46.0); Hemoglobin 12.3 g/dL (12.2-16.2); Lymphocytes # (auto) 2.9 10 ^3/uL (0.4-5.4); Lymphocytes % (auto) 43.3 % (10.0-50.0); Mean Corpuscular Hemoglobin 30.3 pg (28.0-32.0); Mean Corpuscular Hgb Conc. 34.5 g/dL (32.0-36.0); Mean Corpuscular Volume 87.8 fL (80.0-100.0); Monocytes # (auto) 0.3 10 ^3/uL (0-1.3); Neutrophils # (auto) 3.2 10 ^3/uL (1.6-8.6); Neutrophils % (auto) 47.9 % (37.0-80.0); Nucleated Red Blood Cells % 0.2 %; Red Blood Cells 4.07 10^6/uL (4.0-5.20); Red Cell Distribution Width 14.1 % (11.8-14.3); White Blood Cell 6.7 10^3/uL (4.4-10.8)
[2022-06-24] MEDS ORDERED: traMADol HCL 50 MG TAB PO PRN (09:00)
[2022-06-24] MEDS: ERGOCALCIFEROL 50,000 UNIT(1.25MG) CAP PO SCH ×2 (09:30→11:32)
[2022-06-24] MEDS: ENOXAPARIN SOD 40 MG/0.4 ML SYRINGE SC SCH (09:41)
[2022-06-24] MEDS: FERROUS SULFATE 325mg EC TAB PO SCH ×2 (09:41→22:00)
[2022-06-24] MEDS ORDERED: cefTRIAXone 1GM/50ML D5W 50 ML IV SCH (10:00)
[2022-06-24] MEDS: ERTAPENEM SOD INJ 1 GM in SODIUM CHL 0.9% 50 ML IV SCH (10:21)
[2022-06-24] MEDS ORDERED: HYDROmorphone HCL 2 MG/ML VL/or syr IV SCH (10:45)
[2022-06-24] MEDS: HYDROmorphone HCL 2 MG/ML VL/or syr IV PRN ×3 (12:13→22:26)
[2022-06-24] MEDS ORDERED: ERGOCALCIFEROL 50,000 UNIT(1.25MG) CAP PO SCH (21:30)
[2022-06-24 23:27] VITALS: BP 116/66
[2022-06-25] MEDS: HYDROmorphone HCL 2 MG/ML VL/or syr IV PRN ×3 (04:12→21:30)
[2022-06-25] MEDS: ENOXAPARIN SOD 40 MG/0.4 ML SYRINGE SC SCH (10:03)
[2022-06-25] MEDS: FERROUS SULFATE 325mg EC TAB PO SCH ×2 (10:04→21:31)
[2022-06-25] MEDS: ERTAPENEM SOD INJ 1 GM in SODIUM CHL 0.9% 50 ML IV SCH (10:04)
[2022-06-25] MEDS: SODIUM CHLORIDE 0.9% 1,000 ML IV SCH (14:05)
[2022-06-25 16:42] VITALS: BP 144/78
[2022-06-25 17:00] VITALS: BP 144/78
[2022-06-25 22:00] VITALS: BP 118/67
[2022-06-26] MEDS: HYDROmorphone HCL 2 MG/ML VL/or syr IV PRN ×4 (02:32→22:34)
[2022-06-26 05:00] VITALS: BP 112/67
[2022-06-26] MEDS: SODIUM CHLORIDE 0.9% 1,000 ML IV SCH (05:28)
[2022-06-26 08:10] VITALS: BP 120/81
[2022-06-26 08:36] VITALS: BP 120/81
[2022-06-26] MEDS: FERROUS SULFATE 325mg EC TAB PO SCH ×2 (10:34→22:33)
[2022-06-26] MEDS: ENOXAPARIN SOD 40 MG/0.4 ML SYRINGE SC SCH (10:34)
[2022-06-26] MEDS: ERTAPENEM SOD INJ 1 GM in SODIUM CHL 0.9% 50 ML IV SCH (10:35)
[2022-06-26 13:00] VITALS: BP 122/73
[2022-06-26 16:50] VITALS: BP 138/93
[2022-06-26 21:42] VITALS: BP 136/86
[2022-06-27] MEDS: HYDROmorphone HCL 2 MG/ML VL/or syr IV PRN ×3 (04:52→17:47)
[2022-06-27 05:00] VITALS: BP 128/80
[2022-06-27 06:48] LABS: Basophils # (auto) 0.1 10 ^3/uL (0-0.2); Eosinophils # (auto) 0.2 10 ^3/uL (0-0.8); Eosinophils % (auto) 3.2 % (0.0-7.0); Hematocrit 36.2 % (36.0-46.0); Lymphocytes # (auto) 2.4 10 ^3/uL (0.4-5.4); Lymphocytes % (auto) 39.6 % (10.0-50.0); Mean Corpuscular Hemoglobin 29.5 pg (28.0-32.0); Mean Corpuscular Hgb Conc. 33.1 g/dL (32.0-36.0); Mean Corpuscular Volume 88.9 fL (80.0-100.0); Monocytes # (auto) 0.3 10 ^3/uL (0-1.3); Monocytes % (auto) 5.1 % (0.0-12.0); Neutrophils # (auto) 3.2 10 ^3/uL (1.6-8.6); Neutrophils % (auto) 51.1 % (37.0-80.0); Nucleated Red Blood Cells % 0.1 %; Red Blood Cells 4.07 10^6/uL (4.0-5.20); Red Cell Distribution Width 14.1 % (11.8-14.3); White Blood Cell 6.2 10^3/uL (4.4-10.8)
[2022-06-27 07:04] LABS: Calcium 8.8 mg/dL (8.5-10.1); Potassium 3.9 mmol/L (3.5-5.1)
[2022-06-27 07:07] LABS: BUN/Creatinine Ratio 13.7
[2022-06-27 09:04] VITALS: BP 115/81
[2022-06-27] MEDS: FERROUS SULFATE 325mg EC TAB PO SCH ×2 (09:07→21:37)
[2022-06-27] MEDS: ERTAPENEM SOD INJ 1 GM in SODIUM CHL 0.9% 50 ML IV SCH (09:07)
[2022-06-27] MEDS: ENOXAPARIN SOD 40 MG/0.4 ML SYRINGE SC SCH (09:07)
[2022-06-27 12:30] VITALS: BP 119/71
[2022-06-27 16:47] VITALS: BP 132/83
[2022-06-27 20:00] VITALS: BP 136/76
[2022-06-27 22:23] VITALS: BP 117/84
[2022-06-28] MEDS: HYDROmorphone HCL 2 MG/ML VL/or syr IV PRN ×4 (00:10→18:38)
[2022-06-28 04:57] VITALS: BP 136/76
[2022-06-28 08:00] VITALS: BP 113/69
[2022-06-28] MEDS: ENOXAPARIN SOD 40 MG/0.4 ML SYRINGE SC SCH (09:01)
[2022-06-28] MEDS: FERROUS SULFATE 325mg EC TAB PO SCH ×2 (09:01→21:22)
[2022-06-28] MEDS: ERTAPENEM SOD INJ 1 GM in SODIUM CHL 0.9% 50 ML IV SCH (09:01)
[2022-06-28 12:30] VITALS: BP 120/70
[2022-06-28 17:26] VITALS: BP 131/92
[2022-06-28 22:00] VITALS: BP 144/85
[2022-06-29] MEDS: HYDROmorphone HCL 2 MG/ML VL/or syr IV PRN ×4 (00:42→19:47)
[2022-06-29 05:00] VITALS: BP 126/81
[2022-06-29 08:25] VITALS: BP 118/71
[2022-06-29] MEDS: FERROUS SULFATE 325mg EC TAB PO SCH ×2 (10:11→21:42)
[2022-06-29] MEDS: ENOXAPARIN SOD 40 MG/0.4 ML SYRINGE SC SCH (10:11)
[2022-06-29] MEDS: ERTAPENEM SOD INJ 1 GM in SODIUM CHL 0.9% 50 ML IV SCH (10:11)
[2022-06-29 12:25] VITALS: BP 128/82
[2022-06-29 16:25] VITALS: BP 130/81
[2022-06-29 22:00] VITALS: BP 114/65
[2022-06-30] MEDS: HYDROmorphone HCL 2 MG/ML VL/or syr IV PRN ×4 (01:58→21:10)
[2022-06-30 05:00] VITALS: BP 118/69
[2022-06-30 06:57] LABS: Calcium 8.7 mg/dL (8.5-10.1); Potassium 4.6 mmol/L (3.5-5.1)
[2022-06-30 06:59] LABS: BUN/Creatinine Ratio 15.4
[2022-06-30 08:00] VITALS: BP 110/71
[2022-06-30] MEDS: ERTAPENEM SOD INJ 1 GM in SODIUM CHL 0.9% 50 ML IV SCH (08:02)
[2022-06-30] MEDS: FERROUS SULFATE 325mg EC TAB PO SCH ×2 (08:02→21:10)
[2022-06-30] MEDS: ENOXAPARIN SOD 40 MG/0.4 ML SYRINGE SC SCH (08:02)
[2022-06-30 12:00] VITALS: BP 123/68
[2022-06-30 16:00] VITALS: BP 134/74
[2022-06-30 22:58] VITALS: BP 125/91
[2022-07-01] MEDS: HYDROmorphone HCL 2 MG/ML VL/or syr IV PRN ×4 (03:24→22:02)
[2022-07-01 05:25] VITALS: BP 106/60
[2022-07-01 08:00] VITALS: BP 139/64
[2022-07-01] MEDS: ERGOCALCIFEROL 50,000 UNIT(1.25MG) CAP PO SCH (09:37)
[2022-07-01] MEDS: ERTAPENEM SOD INJ 1 GM in SODIUM CHL 0.9% 50 ML IV SCH (10:36)
[2022-07-01] MEDS: ENOXAPARIN SOD 40 MG/0.4 ML SYRINGE SC SCH (10:36)
[2022-07-01] MEDS: FERROUS SULFATE 325mg EC TAB PO SCH ×2 (10:36→22:01)
[2022-07-01] MEDS ORDERED: ERGO1CAP23 PO (10:57)
[2022-07-01 12:00] VITALS: BP 102/64
[2022-07-01 16:00] VITALS: BP 141/76
[2022-07-01 22:00] VITALS: BP 110/75
[2022-07-02 05:00] VITALS: BP 108/67
[2022-07-02] MEDS: HYDROmorphone HCL 2 MG/ML VL/or syr IV PRN ×3 (05:24→18:06)
[2022-07-02 08:00] VITALS: BP 106/58
[2022-07-02 08:58] VITALS: BP 106/56
[2022-07-02] MEDS: FERROUS SULFATE 325mg EC TAB PO SCH ×2 (09:40→21:40)
[2022-07-02] MEDS: ERTAPENEM SOD INJ 1 GM in SODIUM CHL 0.9% 50 ML IV SCH (09:40)
[2022-07-02] MEDS: ENOXAPARIN SOD 40 MG/0.4 ML SYRINGE SC SCH (09:41)
[2022-07-02 13:00] VITALS: BP 128/76
[2022-07-02 17:00] VITALS: BP 142/78
[2022-07-02 22:00] VITALS: BP 122/71
[2022-07-03] MEDS: HYDROmorphone HCL 2 MG/ML VL/or syr IV PRN ×4 (01:48→23:19)
[2022-07-03 05:00] VITALS: BP 121/74
[2022-07-03 08:00] VITALS: BP 104/73
[2022-07-03 08:30] VITALS: BP 104/73
[2022-07-03] MEDS: ERTAPENEM SOD INJ 1 GM in SODIUM CHL 0.9% 50 ML IV SCH (08:42)
[2022-07-03] MEDS: ENOXAPARIN SOD 40 MG/0.4 ML SYRINGE SC SCH (08:42)
[2022-07-03] MEDS: FERROUS SULFATE 325mg EC TAB PO SCH ×2 (08:42→21:02)
[2022-07-03 12:59] VITALS: BP 116/65
[2022-07-03 16:25] VITALS: BP 121/87
[2022-07-03 22:00] VITALS: BP 130/83
[2022-07-04 05:00] VITALS: BP 110/65
[2022-07-04] MEDS: HYDROmorphone HCL 2 MG/ML VL/or syr IV PRN ×3 (05:49→18:09)
[2022-07-04 08:05] VITALS: BP 98/67
[2022-07-04 08:11] LABS: Basophils # (auto) 0.1 10 ^3/uL (0-0.2); Basophils % (auto) 0.9 % (0.0-2.0); Eosinophils # (auto) 0.4 10 ^3/uL (0-0.8); Eosinophils % (auto) 5.2 % (0.0-7.0); Hematocrit 37.4 % (36.0-46.0); Lymphocytes # (auto) 2.7 10 ^3/uL (0.4-5.4); Lymphocytes % (auto) 33.8 % (10.0-50.0); Mean Corpuscular Hemoglobin 30.9 pg (28.0-32.0); Mean Corpuscular Hgb Conc. 34.9 g/dL (32.0-36.0); Mean Corpuscular Volume 88.4 fL (80.0-100.0); Monocytes # (auto) 0.5 10 ^3/uL (0-1.3); Neutrophils # (auto) 4.3 10 ^3/uL (1.6-8.6); Neutrophils % (auto) 54.1 % (37.0-80.0); Nucleated Red Blood Cells % 0.2 %; Red Blood Cells 4.23 10^6/uL (4.0-5.20); Red Cell Distribution Width 13.9 % (11.8-14.3); White Blood Cell 7.9 10^3/uL (4.4-10.8)
[2022-07-04 08:29] VITALS: BP 93/59
[2022-07-04 09:42] LABS: Albumin 3.2 g/dL (3.4-5.0); Calcium 8.6 mg/dL (8.5-10.1); Potassium 4.3 mmol/L (3.5-5.1)
[2022-07-04 09:45] LABS: BUN/Creatinine Ratio 17.6; Bilirubin, Total 0.4 mg/dL (0.2-1.0); Total Protein 7.7 g/dL (6.4-8.2)
[2022-07-04] MEDS: ENOXAPARIN SOD 40 MG/0.4 ML SYRINGE SC SCH (10:04)
[2022-07-04] MEDS: ERTAPENEM SOD INJ 1 GM in SODIUM CHL 0.9% 50 ML IV SCH (10:04)
[2022-07-04] MEDS: FERROUS SULFATE 325mg EC TAB PO SCH ×2 (10:04→21:11)
[2022-07-04 12:30] VITALS: BP 130/70
[2022-07-04 16:35] VITALS: BP 113/69
[2022-07-04 21:55] VITALS: BP 114/65
[2022-07-05] MEDS: HYDROmorphone HCL 2 MG/ML VL/or syr IV PRN ×4 (00:09→18:51)
[2022-07-05 05:00] VITALS: BP 131/48
[2022-07-05 08:00] VITALS: BP 93/58
[2022-07-05 09:00] VITALS: BP 93/58
[2022-07-05] MEDS: FERROUS SULFATE 325mg EC TAB PO SCH ×2 (09:33→22:20)
[2022-07-05] MEDS: ENOXAPARIN SOD 40 MG/0.4 ML SYRINGE SC SCH (09:33)
[2022-07-05] MEDS: ERTAPENEM SOD INJ 1 GM in SODIUM CHL 0.9% 50 ML IV SCH (09:33)
[2022-07-05 13:00] VITALS: BP 111/71
[2022-07-05 16:55] VITALS: BP 126/74
[2022-07-05 22:00] VITALS: BP 102/57
[2022-07-06] MEDS: HYDROmorphone HCL 2 MG/ML VL/or syr IV PRN ×2 (01:07→07:49)
[2022-07-06 05:00] VITALS: BP 98/63
[2022-07-06 09:00] VITALS: BP 118/82
[2022-07-06] MEDS: ENOXAPARIN SOD 40 MG/0.4 ML SYRINGE SC SCH (09:18)
[2022-07-06] MEDS: FERROUS SULFATE 325mg EC TAB PO SCH (09:18)
[2022-07-06] MEDS: ERTAPENEM SOD INJ 1 GM in SODIUM CHL 0.9% 50 ML IV SCH (09:19)
[2022-07-06 13:00] VITALS: BP 119/72
== END 2022-07-06 14:08 | disposition home or self-care (01) | DRG 463 ==
LOC: ER 00:09 → OVERFLOW 04:42 → CENTRAL 06-25 16:12
PROVIDERS: ADMIT Hospitalist; ATTEND Internal Medicine
DX: N30.00 Acute cystitis without hematuria (principal); E44.0 Moderate protein-calorie malnutrition; E55.9 Vitamin D deficiency, unspecified; E66.01 Morbid (severe) obesity due to excess calories; Z20.822 Contact with and (suspected) exposure to COVID-19; R10.2 Pelvic and perineal pain; I10 Essential (primary) hypertension; F32.A Depression, unspecified; J45.909 Unspecified asthma, uncomplicated; G89.29 Other chronic pain; Z71.3 Dietary counseling and surveillance; Z68.41 Body mass index [BMI] 40.0-44.9, adult; Q05.9 Spina bifida, unspecified; Z98.84 Bariatric surgery status; Z82.5 Family history of asthma and other chronic lower respiratory diseases; Z83.3 Family history of diabetes mellitus; Z87.440 Personal history of urinary (tract) infections; Z88.1 Allergy status to other antibiotic agents; Z85.038 Personal history of other malignant neoplasm of large intestine; Z88.5 Allergy status to narcotic agent; Z88.8 Allergy status to other drugs, medicaments and biological substances; Z91.040 Latex allergy status; Z90.49 Acquired absence of other specified parts of digestive tract
CPT/HCPCS: 36415; 76775; 80048; 80053; 81001; 82306; 85025; 87426; 96365; 96375; G0378; J0696; J1335; J2405

== ENCOUNTER 2023-05-03 23:45 | Emergency (ER) | payer MEDICAID ==
[~2023-05-03] VITALS: Ht 170.2 cm; Wt 127.3 kg
[~2023-05-03 23:45] MED LIST changes: -CEFU500T43 PO; -CIPR-173 PO; +ERGO1CAP23 PO; +NITR-52 PO
[2023-05-04 01:08] LABS: Basophils # (auto) 0.1 10 ^3/uL (0-0.2); Basophils % (auto) 0.8 % (0.0-2.0); Eosinophils # (auto) 0.2 10 ^3/uL (0-0.8); Eosinophils % (auto) 2.8 % (0.0-7.0); Hemoglobin 12.8 g/dL (12.2-16.2); Lymphocytes # (auto) 1.9 10 ^3/uL (0.4-5.4); Lymphocytes % (auto) 29.6 % (10.0-50.0); Mean Corpuscular Hemoglobin 29.6 pg (28.0-32.0); Mean Corpuscular Hgb Conc. 32.9 g/dL (32.0-36.0); Monocytes # (auto) 0.3 10 ^3/uL (0-1.3); Monocytes % (auto) 4.7 % (0.0-12.0); Neutrophils % (auto) 62.1 % (37.0-80.0); Red Blood Cells 4.33 10^6/uL (4.0-5.20); Red Cell Distribution Width 14.6 % (11.8-14.3); White Blood Cell 6.4 10^3/uL (4.4-10.8)
[2023-05-04 01:25] LABS: Alkaline Phosphatase 77 U/L (46-116); Anion Gap 9 (5-15); Aspartate Aminotransferase 10 U/L (13-40); BUN/Creatinine Ratio 11.6 (10.0-20.0); Blood Urea Nitrogen 10 mg/dL (9-23); Calcium 8.9 mg/dL (8.7-10.4); Carbon Dioxide 19 mmol/L (20-30); Chloride 111 mmol/L (98-107); Glucose 139 mg/dL (74-106); Lipase 37 U/L (12-53); Potassium 3.4 mmol/L (3.5-5.1); Sodium 139 mmol/L (136-145)
[2023-05-04 01:26] LABS: Bilirubin, Total 0.2 mg/dL (0.2-1.0)
[2023-05-04 01:28] LABS: Alanine Aminotransferase 9 U/L (7-40)
[2023-05-04 01:54] LABS: Urine Bacteria FEW /hpf (None Seen); Urine Blood Negative /uL (Negative); Urine Clarity HAZY (Clear); Urine Color Yellow (Yellow); Urine Mucus FEW (None Seen); Urine Protein, UAD TRACE (Negative); Urine Specific Gravity 1.016 (1.001-1.035); Urine Urobilinogen Normal (Negative); Urine WBC 39 /hpf (0 - 5)
[2023-05-04] MEDS ORDERED: PHEN-922 PO (03:12)
[2023-05-04] MEDS ORDERED: NITR-87 PO (03:12)
[2023-05-04] MEDS ORDERED: cefTRIAXone SOD 1,000 MG VL IM ONE (03:15)
[2023-05-04 07:27] VITALS: BP 140/91; PULSE 100; RESP 20; TEMP 98.4; O2SAT 99
== END 2023-05-04 07:09 | disposition home or self-care (01) ==
LOC: ER 23:45
DX: N39.0 Urinary tract infection, site not specified (principal); Z90.49 Acquired absence of other specified parts of digestive tract; Z88.6 Allergy status to analgesic agent; Z88.0 Allergy status to penicillin; Z88.8 Allergy status to other drugs, medicaments and biological substances
CPT/HCPCS: 36415; 74176; 80053; 81001; 83690; 85025; 96372; 99285; J0696